=== PATIENT | male | born 1930 | race Caucasian/White ===

== ENCOUNTER 2017-11-30 10:44 | Inpatient (IN) ==
--- NOTE | 2017-11-30 12:01 | ED ---
HPI General Chief complaint: Extremity Problem,Nontraumatic Stated complaint: Feet Complaint Time Seen by Provider: 11/30/17 11:47 Source: patient and family Mode of arrival: ambulatory Limitations: no limitations History of Present Illness HPI narrative: Patient is an 87-year-old male presenting to the emergency department for evaluation of shortness of breath, bilateral lower extremity edema. Patient was sent in by his primary care provider Dr. Hyatt. Family reports that he has increasing activity intolerance for the last 3 weeks. His daughter states that he has been sedentary for the last several days due to shortness of breath. She also states that he has been complaining of chest and shoulder pain. Patient denies any nausea, vomiting, dizziness, headache, abdominal pain. He does report a decreased appetite and feeling bloated. Symptom onset was gradual, symptoms are moderate in nature. Onset (ago): week(s) (3) Location: chest Radiation: back Severity: mild Severity scale (1-10): 4 Quality: aching Pain Consistency: intermittent Associated symptoms: chest pain, loss of appetite and weakness Related Data Home Medications Medication Instructions Recorded Confirmed apixaban [Eliquis] 2.5 mg PO BID 11/30/17 11/30/17 aspirin 81 mg PO DAILY 11/30/17 11/30/17 atorvastatin 20 mg PO DAILY 11/30/17 11/30/17 donepezil 10 mg PO DAILY 11/30/17 11/30/17 duloxetine 60 mg PO DAILY 11/30/17 11/30/17 memantine 10 mg PO BID 11/30/17 11/30/17 [id number] acid-lutein [Centrum 1 tab PO DAILY 11/30/17 11/30/17 Silver] pregabalin [Lyrica] 50 mg PO TID PRN 11/30/17 11/30/17 sitagliptin [Januvia] 50 mg PO DAILY 11/30/17 11/30/17 Allergies Allergy/AdvReac Type Severity Reaction Status Date / Time No Known Allergies Allergy Unverified 11/30/17 11:51 Review of Systems Except as stated in HPI: all other systems reviewed are negative PMFSH History History Provided By: Family Member Medical History Medical History Atrial fibrillation (Chronic) Dementia (Chronic) Diabetes (Chronic) High cholesterol (Chronic) Pacemaker (Chronic) Pneumonia (Resolved) Surgical History Surgical History History of heart artery stent (Chronic) Social History Social History Smoking Status: Former smoker How Often Do You Have a Drink Containing Alcohol: 2 to 4 times a month Recent Travel in [facility] within the Last 8 Weeks: No Recent Out of Country Travel within the Last 8 Weeks: No Exam Narrative Exam Narrative: GENERAL: Well-developed, well-nourished, alert elderly male. Presenting in no acute distress. SKIN: Focused skin assessment warm/dry. HEAD: Atraumatic. Normocephalic. EYES: Pupils equal and round. No scleral icterus. No injection or drainage. ENT: No nasal bleeding or discharge. Mucous membranes pink and moist. NECK: Trachea midline. No JVD. CARDIOVASCULAR: Irregularly irregular. No murmur appreciated. 1+ pitting edema to bilateral lower extremities RESPIRATORY: No accessory muscle use. Clear to auscultation. Breath sounds equal bilaterally. GASTROINTESTINAL: Abdomen soft, non-tender, nondistended. Hepatic and splenic margins not palpable. MUSCULOSKELETAL: No obvious deformities. No clubbing. No cyanosis. No edema. NEUROLOGICAL: Awake and alert. No obvious cranial nerve deficits. Motor grossly within normal limits. Normal speech. PSYCHIATRIC: Appropriate mood and affect; insight and judgment normal. Course Initial Documented Vital Signs Temperature 98 F 11/30/17 10:50 Pulse Rate 84 11/30/17 10:50 Respiratory Rate 20 11/30/17 10:50 Blood Pressure 115/75 11/30/17 10:50 Pulse Oximetry 99 11/30/17 10:50 Last Documented Vital Signs Temperature 98 F 11/30/17 10:50 Pulse Rate 76 11/30/17 13:00 Respiratory Rate 18 11/30/17 13:00 Blood Pressure 120/79 11/30/17 13:00 Pulse Oximetry 99 11/30/17 13:00 Medical Decision Making LAITH Attestation LAITH supervised visit: Yes Attestation: I, Dr. Llanos, have reviewed the advance practice practitioner's documentation and am in agreement, met with the patient face to face, made the diagnosis, and the medical decision making was done by me. *My assessment and Findings: This patient has diffuse peripheral edema. He does not appear to be in any respiratory distress at this time. Workup is compatible with CHF and probable pneumonia as well. He is being admitted to the resident service. Please see Claribel Artis NP's note for a more detailed H&P, final diagnosis and disposition MDM Narrative Medical decision making narrative: Patient is a 87-year-old male presenting for evaluation of edema and shortness of breath. Patient has no history of COPD, hypertension or congestive heart failure. Labs and imaging ordered and pending. IV access established, patient placed on telemetry monitoring and continuous pulse oximetry. Patient is resting comfortably and family is at bedside. Labs reviewed, patient's BUN and creatinine 68/2.32, BNP is elevated at 1433, troponin 1.12. Initial chest x-ray with consolidation or mass in the right upper lung field. Culture showed interstitial disease versus edema. For this reason a CT scan of the chest was performed which showed bilateral effusions and parenchymal infiltrates with bronchogram pattern. Patient was started on azithromycin and Rocephin for pneumonia. He was given Lasix 40 mg IV 1 dose for the congestive heart failure. It is unclear if the renal failure is new as we have nothing to compare to. Discussed findings with my attending physician as well as with the residents who accepted admission for Dr. Riggs. Differential Diagnosis Differential Diagnosis: CHF versus cardiac arrhythmia versus metabolic abnormality versus pneumonia versus other Lab Data Lab results reviewed: Yes I reviewed the patient's lab results. Result diagrams: 11/30/17 12:10 11/30/17 12:10 Lab Results 11/30/17 11/30/17 11/30/17 Range/Units 12:10 12:10 12:10 WBC 7.9 (4.0-11.0) th/mm3 RBC 3.58 L (4.50-5.90) mil/mm3 Hgb 11.9 L (13.0-17.0) gm/dL Hct 35.3 L (39.0-51.0) % MCV 98.6 (80.0-100.0) fL MCH 33.3 (27.0-34.0) pg MCHC 33.7 (32.0-36.0) % RDW 13.9 (11.6-17.2) % Plt Count 148 L (150-450) th/mm3 MPV 9.7 (7.0-11.0) fL Neut % (Auto) 71.1 H (16.0-70.0) % Lymph % (Auto) 14.0 (9.0-44.0) % [place] % (Auto) 13.5 H (0.0-8.0) % Eos % (Auto) 1.2 (0.0-4.0) % Baso % (Auto) 0.2 (0.0-2.0) % Neut # (Auto) 5.6 (1.8-7.7) th/mm3 Lymph # (Auto) 1.1 (1.0-4.8) th/mm3 [place] # (Auto) 1.1 H (0.0-0.9) th/mm3 Eos # (Auto) 0.1 (0.0-0.4) th/mm3 Baso # (Auto) 0.0 (0.0-0.2) th/mm3 WBC Differential . Differential Comment Auto diff final PT 14.2 H (9.8-11.6) sec INR 1.4 Ratio Sodium 139 (136-145) meq/L Potassium 4.7 (3.5-5.1) meq/L Chloride 103 (98-107) meq/L Carbon Dioxide 27.0 (21.0-32.0) meq/L Anion Gap 9 (5-15) meq/L BUN 68 H (7-18) mg/dL Creatinine 2.32 H (0.60-1.30) mg/dL Estimated GFR 27 L (>89) mL/min Random Glucose 160 H (74-106) mg/dL Calcium 8.7 (8.5-10.1) mg/dL Magnesium 2.5 (1.5-2.5) mg/dL Total Bilirubin 0.5 (0.2-1.0) mg/dL AST 117 H (15-37) U/L ALT 266 H (12-78) U/L Alkaline Phosphatase 293 H (45-117) U/L Total Creatine Kinase 202 (39-308) U/L CK-MB (CK-2) 4.0 H (0.5-3.6) ng/mL Troponin I 1.21 H* (0.02-0.05) ng/mL B-Natriuretic Peptide (0-100) pg/mL Total Protein 6.7 (6.4-8.2) g/dL Albumin 2.7 L (3.4-5.0) g/dL 08/01/18 Range/Units 12:10 WBC (4.0-11.0) th/mm3 RBC (4.50-5.90) mil/mm3 Hgb (13.0-17.0) gm/dL Hct (39.0-51.0) % MCV (80.0-100.0) fL MCH (27.0-34.0) pg MCHC (32.0-36.0) % RDW (11.6-17.2) % Plt Count (150-450) th/mm3 MPV (7.0-11.0) fL Neut % (Auto) (16.0-70.0) % Lymph % (Auto) (9.0-44.0) % [place] % (Auto) (0.0-8.0) % Eos % (Auto) (0.0-4.0) % Baso % (Auto) (0.0-2.0) % Neut # (Auto) (1.8-7.7) th/mm3 Lymph # (Auto) (1.0-4.8) th/mm3 [place] # (Auto) (0.0-0.9) th/mm3 Eos # (Auto) (0.0-0.4) th/mm3 Baso # (Auto) (0.0-0.2) th/mm3 WBC Differential Differential Comment PT (9.8-11.6) sec INR Ratio Sodium (136-145) meq/L Potassium (3.5-5.1) meq/L Chloride (98-107) meq/L Carbon Dioxide (21.0-32.0) meq/L Anion Gap (5-15) meq/L BUN (7-18) mg/dL Creatinine (0.60-1.30) mg/dL Estimated GFR (>89) mL/min Random Glucose (74-106) mg/dL Calcium (8.5-10.1) mg/dL Magnesium (1.5-2.5) mg/dL Total Bilirubin (0.2-1.0) mg/dL AST (15-37) U/L ALT (12-78) U/L Alkaline Phosphatase (45-117) U/L Total Creatine Kinase (39-308) U/L CK-MB (CK-2) (0.5-3.6) ng/mL Troponin I (0.02-0.05) ng/mL B-Natriuretic Peptide 1433 H (0-100) pg/mL Total Protein (6.4-8.2) g/dL Albumin (3.4-5.0) g/dL Imaging Data Radiologist's impression: Chest X-Ray 11/30/17 11:55 CONCLUSION: Consolidation or mass in the right upper lung. Cardiomegaly. Indistinctness of the pulmonary vasculature which could suggest some interstitial disease/edema Chest CT 11/30/17 12:53 CONCLUSION: 1. Bilateral parenchymal infiltrates and effusions, right greater than left. 2. Mediastinal adenopathy. Radiology reports reviewed ECG Data EKG Prior to Arrival: No Attestation: I personally reviewed and interpreted this ECG as follows: (His EKG shows a paced rhythm. No further evaluation of EKG is possible. His rate is 73. Does not meet [place] criteria.) Discharge Plan Discharge Disposition Patient Disposition: 30 Still Patient Discharge Condition Condition: Stable Discharge Details Diagnosis: CHF (congestive heart failure), Pneumonia, Acute renal failure (ARF), Elevated troponin Physicians Team ED Provider: Paige Llanos ED Midlevel Provider: Claribel Smith Primary Care Provider: Micah Hyatt Attending Provider: Yovani Rivera ED Status: Admitted Patient
[2017-11-30 12:39] LABS: Baso % (Auto) 0.2 % (0.0-2.0); Eos # (Auto) 0.1 th/mm3 (0.0-0.4); Eos % (Auto) 1.2 % (0.0-4.0); Hematocrit 35.3 % (39.0-51.0); Hemoglobin 11.9 gm/dL (13.0-17.0); Lymph # (Auto) 1.1 th/mm3 (1.0-4.8); Mean Corpuscular HGB Conc 33.7 % (32.0-36.0); Mean Corpuscular Hemoglobin 33.3 pg (27.0-34.0); Mean Corpuscular Volume 98.6 fL (80.0-100.0); Mean Platelet Volume 9.7 fL (7.0-11.0); Mono # (Auto) 1.1 th/mm3 (0.0-0.9); Mono % (Auto) 13.5 % (0.0-8.0); Neut # (Auto) 5.6 th/mm3 (1.8-7.7); Neut % (Auto) 71.1 % (16.0-70.0); Platelet Count 148 th/mm3 (150-450); Red Blood Count 3.58 mil/mm3 (4.50-5.90); Red Cell Distribution Width 13.9 % (11.6-17.2); White Blood Count 7.9 th/mm3 (4.0-11.0)
[2017-11-30 12:43] LABS: Alanine Aminotransferase 266 U/L (12-78); Albumin 2.7 g/dL (3.4-5.0); Anion Gap 9 meq/L (5-15); Aspartate Aminotransferase 117 U/L (15-37); Blood Urea Nitrogen 68 mg/dL (7-18); Calcium 8.7 mg/dL (8.5-10.1); Chloride 103 meq/L (98-107); Glomerular Filtration Rate 27 mL/min (>89); Glucose,Random 160 mg/dL (74-106); Magnesium 2.5 mg/dL (1.5-2.5); Potassium 4.7 meq/L (3.5-5.1); Sodium 139 meq/L (136-145)
[2017-11-30 12:44] LABS: INR 1.4 Ratio; Prothrombin Time 14.2 sec (9.8-11.6)
[2017-11-30 12:47] LABS: Alkaline Phosphatase 293 U/L (45-117); Creatine Kinase 202 U/L (39-308); Total Protein 6.7 g/dL (6.4-8.2)
--- NOTE | 2017-11-30 12:52 | XR ---
EXAM DATE: 11/30/2017 12:34 PM EDT AGE/SEX: 87 years / Male INDICATIONS: Shortness of breath and chest pain. CLINICAL DATA: This is the patient's initial encounter. Patient reports that signs and symptoms have been present for 1 day and indicates a pain score of 8/10. MEDICAL/SURGICAL HISTORY: Diabetes. Pacemaker. COMPARISON: No prior exams available for comparison. FINDINGS: There is a pacing device in place from the left subclavian approach. The heart size is enlarged. Ther e is a patchy area of density seen in the right upper lung. There is some mild indistinctness the pul monary vasculature. The costophrenic angles are grossly clear. CONCLUSION: Consolidation or mass in the right upper lung. Cardiomegaly. Indistinctness of the pulmonary vasculature which could suggest some interstitial disease/edema Electronically signed by: Manish Choi MD 11/30/2017 12:50 PM EDT
[2017-11-30 13:10] LABS: Troponin I 1.21 ng/mL (0.02-0.05)
--- NOTE | 2017-11-30 14:07 | CT ---
EXAM DATE: 11/30/2017 1:56 PM EDT AGE/SEX: 87 years / Male INDICATIONS: Shortness of breath. CLINICAL DATA: This is the patient's initial encounter. Patient reports that signs and symptoms have been present for 1 day and indicates a pain score of 0/10. MEDICAL/SURGICAL HISTORY: Diabetes. Dementia. Pacemaker. Carotid stent. RADIATION DOSE: 12.91 CTDI (mGy) COMPARISON: [facility] – [place], [place], CHEST 1V SINGLE AP, 11/30/2017. . TECHNIQUE: Multiple contiguous axial images were obtained through the chest without contrast. Image s were obtained in suspended respiration using multiple row detector helical technique. Using automa audrey exposure control and adjustment of the mA and/or kV according to patient size, radiation dose was kept as low as reasonably achievable to obtain optimal diagnostic quality images. DICOM format imag e data is available electronically for review and comparison. FINDINGS: There are coarse parenchymal infiltrate bilaterally most pronounced in the right upper lobe with air bronchogram formation seen. There is a large right-sided effusion and a moderate left effusion. There are mildly prominent mediastinal lymph nodes identified including AP window 1.2 cm node, 1 cm subcar inal node, and 9 mm right paratracheal node. There is prominent coronary artery calcification seen. A dual-lead pacer device from a left subclavian transvenous approach is noted. The osseous structures are intact. CONCLUSION: 1. Bilateral parenchymal infiltrates and effusions, right greater than left. 2. Mediastinal adenopathy. Electronically signed by: Adeel Torre MD 11/30/2017 2:05 PM EDT
[2017-11-30] MEDS ORDERED: Azithromycin Inj 500 MG in Sodium Chlor 0.9% Inj 250 ML IV.SIG ONE (14:20)
--- NOTE | 2017-11-30 14:55 | P.HPFP ---
History of Present Illness Primary Care Physician: Micah Hyatt MD <Yovani Rivera 12/01/17 14:01> Micah Hyatt MD <Kasey Baxter 11/30/17 14:55> History of Present Illness: Patient's and daughter at bedside and contribute to history. Mr. Moran is an 87-year-old male with a history of dementia who presents with swelling of legs and dyspnea. He reports that for the past 2 weeks he has had increasing difficulty of breathing with exertion. He is now unable to walk across a room without feeling short of breath. He has had a cough for the past 5 days nonproductive. Past 5 days he has also noticed some increased swelling of his legs bilaterally. He denies orthopnea. He reports neck pain but denies jorge luis chest, jaw or arm pain. Daughter and do not report any change in mentation. He denies fevers, chills, abdominal pain, diarrhea, nausea, vomiting. PMH: DM HLD Afib Sx: Pacemaker- 2004 Stent 2005, 1997 Meds: ASA Januvia Eliquis Atorvastatin Donepezil Duloxetine Memantine Lyrica FMH: Father- dementia Mom- DM Social: Chews cigars, former smoker quit 10 years ago Social No recreational drugs <Kasey Baxter 11/30/17 23:26> - Diagnosis (1) CHF (congestive heart failure) (2) Elevated troponin (3) Acute renal failure (ARF) (4) Pneumonia (5) Elevated liver enzymes (6) Abnormal chest CT (7) Dementia (8) Diabetes (9) Afib (10) Hyperlipidemia (11) Nutrition, metabolism, and development symptoms <Yovani Rivera 12/01/17 14:01> (1) CHF (congestive heart failure) (2) Elevated troponin (3) Acute renal failure (ARF) (4) Elevated liver enzymes (5) Abnormal chest CT (6) Dementia (7) Diabetes (8) Afib (9) Hyperlipidemia (10) Nutrition, metabolism, and development symptoms <Kasey Baxter 12/01/17 09:39> Inpatient Certification: I certify that the inpatient services were ordered in accordance with Medicare regulations governing the order. This includes certification that hospital inpatient services are reasonable and necessary and in the case of services not specified as inpatient-only under 42 CFR 419.22(n), that they are appropriately provided as inpatient services in accordance to with the 2-midnight benchmark under 43 CFR 412.3(e) <Yovani Rivera 12/01/17 14:01> Review of Systems Daughter and contributed to review of systems Constitutional: [Denies] chills, [Denies] fever(s), [Denies] headache(s), [ Denies]weakness, reports fatigue Eyes: [Denies] blurry vision, [Denies] change in vision, [Denies] double vision Ears, Nose, Mouth, and Throat:[Denies] ear pain,[Denies] nasal congestion, [ Denies] sore throat Cardiovascular: [Denies] lightheadedness, [Denies] chest pain, [Denies] palpitations, [Denies] fainting. [Denies] rapid heart rate Respiratory: [Denies] cough, reports shortness of breath Gastrointestinal: [Denies] abdominal pain,[Denies] cramping, [Denies] black, tarry stools, [Denies] bright, red blood in stools, [Denies] nausea, [Denies] vomiting, [Denies] changes in bowel habits Genitourinary: [Denies] blood in urine, [Denies] painful urination, [Denies] urinary urgency, [Denies] urinary frequency Musculoskeletal: Reports neck pain [Denies] body aches, [Denies] joint pains, [ Denies] muscle weakness Neurologic: [Denies] numbness, [Denies] tingling, [Denies] dizziness <Kasey Baxter 11/30/17 22:18> PMFSH - History History Provided By: Family Member <Kasey Baxter 11/30/17 14:55> - Medical History Medical History: Medical History (Last Updated 11/30/17 @ 12:00 by YVES Casey) Atrial fibrillation Dementia Diabetes High cholesterol Pacemaker Pneumonia <Yovani Rivera - 12/01/17 14:01> Medical History (Last Updated 11/30/17 @ 12:00 by YVES Casey) Atrial fibrillation Dementia Diabetes High cholesterol Pacemaker Pneumonia <Kasey Baxter 11/30/17 14:55> - Surgical History Surgical History: Surgical History (Last Updated 11/30/17 @ 12:00 by YVES Casey) History of heart artery stent <Yovani Rivera 12/01/17 14:01> Surgical History (Last Updated 11/30/17 @ 12:00 by YVES Casey) History of heart artery stent <Kasey Baxter 11/30/17 14:55> - Tobacco History Smoking Status: Former smoker <Kasey Baxter 11/30/17 14:55> - Alcohol History How Often Do You Have a Drink Containing Alcohol: 2 to 4 times a month <Kasey Baxter 11/30/17 14:55> - Substance Use History Substance History: No History of Abuse <Kasey Baxter 11/30/17 22:18> - Travel History Recent Travel in the [facility] Within the Last 8 Weeks: No <Kasey Baxter 14:55> Recent Travel Out of the Country Within the Last 8 Weeks: No <Kasey Baxter 11/30/17 14:55> - Immunization History Tetanus Immunization: Unsure <Kasey Baxter 11/30/17 14:55> Hx Influenza Vaccine This Season: Yes <Kasey Baxter 11/30/17 14:55> Medications and Allergies Allergies Allergy/AdvReac Type Severity Reaction Status Date / Time No Known Allergies Allergy Verified 11/30/17 15:30 <Yovani Rivera 12/01/17 14:01> Home Medications Medication Instructions Recorded Confirmed Type apixaban [Eliquis] 2.5 mg PO BID 11/30/17 11/30/17 History aspirin 81 mg PO DAILY 11/30/17 11/30/17 History atorvastatin 20 mg PO DAILY 11/30/17 11/30/17 History donepezil 10 mg PO DAILY 11/30/17 11/30/17 History duloxetine 60 mg PO DAILY 11/30/17 11/30/17 History memantine 10 mg PO BID 11/30/17 11/30/17 History [id number] acid-lutein [Centrum 1 tab PO DAILY 11/30/17 11/30/17 History Silver] pregabalin [Lyrica] 50 mg PO TID PRN 11/30/17 11/30/17 History sitagliptin [Januvia] 50 mg PO DAILY 11/30/17 11/30/17 History <Miguel,Yovani - 12/01/17 14:01> Active Medications: Active Medications Al Hydroxide/Mg Hydroxide (Milk Of Magnesia Liq) 30 ml PO Q12H PRN PRN Reason: Mild Constipation Apixaban (Eliquis) 2.5 mg PO BID [facility] Last Admin: 12/01/17 09:47 Dose: 2.5 mg Aspirin (Aspirin Chew) 81 mg PO DAILY [facility] Last Admin: 12/01/17 09:46 Dose: 81 mg Atorvastatin Calcium (Lipitor) 80 mg PO HS [facility] Last Admin: 11/30/17 22:08 Dose: 80 mg Bisacodyl (Dulcolax Supp) 10 mg RECTAL DAILY PRN PRN Reason: SEVERE CONSITIPATION Dextrose (D50w Vial) 50 ml IV.PUSH UNSCH PRN PRN Reason: PER HYPOGLYCEMIA PROTOCOL Donepezil HCl (Aricept) 10 mg PO DAILY [facility] Last Admin: 12/01/17 09:45 Dose: 10 mg Duloxetine HCl (Cymbalta) 60 mg PO DAILY [facility] Last Admin: 12/01/17 09:46 Dose: 60 mg Furosemide (Lasix Inj) 40 mg IV.PUSH DAILY [facility] Last Admin: 12/01/17 09:47 Dose: 40 mg Glucagon (Glucagon Inj) 1 mg OTHER PRN PRN PRN Reason: for Hypoglycemia Protocol Insulin Aspart (Novolog Insulin Correctional Sugar Inj) 0 unit SQ [facility]; Protocol Last Admin: 12/01/17 10:17 Dose: Not Given Lactulose (Lactulose Liq) 30 ml PO DAILY PRN PRN Reason: SEVERE CONSITIPATION Memantine (Namenda) 10 mg PO BID [facility] Last Admin: 12/01/17 09:46 Dose: 10 mg Metoprolol Tartrate (Lopressor) 12.5 mg PO BID [facility] Last Admin: 12/01/17 09:46 Dose: 12.5 mg Nitroglycerin (Nitro-Bid 2% Oint) 0.5 inch TOPICAL Q8HR [facility] Last Admin: 12/01/17 06:05 Dose: Not Given Pregabalin (Lyrica) 50 mg PO TID PRN PRN Reason: PAIN SCALE 1 TO 10 Senna/Docusate Sodium (Minerva-Colace) 1 tab PO BID [facility] Last Admin: 12/01/17 09:45 Dose: 1 tab Sennosides (Senokot) 17.2 mg PO Q12H PRN PRN Reason: Moderate Constipation <Yovani Rivera - 12/01/17 14:01> Active Medications Azithromycin 500 mg/ Sodium (Chloride) 250 mls @ 250 mls/hr IV.SIG ONCE ONE Stop: 11/30/17 15:19 Ceftriaxone Sodium 2,000 mg/ (Sodium Chloride) 100 mls @ 200 mls/hr IV.SIG ONCE ONE Stop: 11/30/17 14:49 <Kasey Baxter - 11/30/17 14:55> Exam Vital signs: Vital Signs 11/30/17 15:05 11/30/17 17:00 11/30/17 18:24 Temperature Pulse Rate 78 84 75 Respiratory Rate 18 14 18 Blood Pressure 130/78 106/62 106/62 Pulse Oximetry 95 100 11/30/17 19:54 11/30/17 23:21 12/01/17 03:23 Temperature 98.2 F 97.9 F 97.8 F Pulse Rate 80 63 107 H Respiratory Rate 16 16 16 Blood Pressure 117/67 98/69 L Pulse Oximetry 97 95 90 L 12/01/17 08:00 12/01/17 12:00 Temperature 98.7 F 98.7 F Pulse Rate 60 62 Respiratory Rate 18 18 Blood Pressure 113/67 Pulse Oximetry 99 94 L Intake & Output 11/30/17 12/01/17 12/01/17 18:59 06:59 18:59 Intake Total 350 / 350 Output Total 250 / 250 Balance 100 / 100 Weight 90.718 kg 80.11 kg Intake: IV 350 / 350 Azithromycin Inj 500 MG In NS 250 / 250 Inj 250 ML @ 250 mls/hr IV.SIG ONCE ONE Rx#:[id number] Rocephin Inj 2,000 MG In NS Inj 100 / 100 100 ML @ 200 mls/hr IV.SIG ONCE ONE Rx#:[id number] Output: Urine 250 / 250 Other: # Incontinent Voids 2 Date of Last Bowel Movement 11/30/17 <Yovani Rivera - 12/01/17 14:01> Vital Signs 11/30/17 10:50 11/30/17 11:55 11/30/17 13:00 Temperature 98 F Pulse Rate 84 74 76 Respiratory Rate 20 18 Blood Pressure 115/75 120/79 Pulse Oximetry 99 100 99 Intake & Output 11/29/17 11/30/17 11/30/17 18:59 06:59 18:59 Weight 90.718 kg <Kasey Baxter Christi - 11/30/17 14:55> Narrative: GENERAL: Thin male lying in bed comfortable HEAD: Normocephalic. EYES: No scleral icterus. NECK: No JVD or lymphadenopathy. CARDIOVASCULAR: Irregular rate without murmurs, gallops, or rubs. RESPIRATORY: Occasional crackles heard bilateral bases. breath sounds equal bilaterally. No accessory muscle use. GASTROINTESTINAL: Abdomen soft, non-tender, nondistended. MUSCULOSKELETAL: No cyanosis. 1+ pitting edema bilaterally lower extremities extending to mid wang BACK: Kyphotic, no CVA tenderness. Neurological: Patient oriented only to self <Jt Baxteryovani Barraza - 11/30/17 23:26> Results - Labs Result diagrams: 12/01/17 05:55 12/01/17 05:55 <Yovani Rivera 12/01/17 14:01> Abnormal lab results 11/30/17 11/30/17 12/01/17 Range/Units 18:30 20:37 05:55 RBC (4.50-5.90) mil/mm3 Hgb (13.0-17.0) gm/dL Hct (39.0-51.0) % Plt Count (150-450) th/mm3 Neut % (Auto) (16.0-70.0) % [place] % (Auto) (0.0-8.0) % [place] # (Auto) (0.0-0.9) th/mm3 Chloride (98-107) meq/L BUN (7-18) mg/dL Creatinine (0.60-1.30) mg/dL Estimated GFR (>89) mL/min POC Glucose 296 H (68-110) mg/dl Random Glucose (74-106) mg/dL AST (15-37) U/L ALT (12-78) U/L Alkaline Phosphatase (45-117) U/L Troponin I 1.38 H* 1.56 H* (0.02-0.05) ng/mL B-Natriuretic Peptide (0-100) pg/mL Total Protein (6.4-8.2) g/dL Albumin (3.4-5.0) g/dL Triglycerides 33 L (42-150) mg/dL Cholesterol 59 L (120-200) mg/dL HDL Cholesterol 37.8 L (40.0-60.0) mg/dL 12/01/17 12/01/17 12/01/17 Range/Units 05:55 05:55 05:55 RBC 3.66 L (4.50-5.90) mil/mm3 Hgb 12.0 L (13.0-17.0) gm/dL Hct 36.0 L (39.0-51.0) % Plt Count 147 L (150-450) th/mm3 Neut % (Auto) 76.1 H (16.0-70.0) % [place] % (Auto) 11.7 H (0.0-8.0) % [place] # (Auto) 1.1 H (0.0-0.9) th/mm3 Chloride 108 H (98-107) meq/L BUN 74 H (7-18) mg/dL Creatinine 2.49 H (0.60-1.30) mg/dL Estimated GFR 25 L (>89) mL/min POC Glucose (68-110) mg/dl Random Glucose 71 L (74-106) mg/dL AST 192 H (15-37) U/L ALT 286 H (12-78) U/L Alkaline Phosphatase 359 H (45-117) U/L Troponin I (0.02-0.05) ng/mL B-Natriuretic Peptide 2009 H (0-100) pg/mL Total Protein 6.3 L (6.4-8.2) g/dL Albumin 2.7 L (3.4-5.0) g/dL Triglycerides (42-150) mg/dL Cholesterol (120-200) mg/dL HDL Cholesterol (40.0-60.0) mg/dL 18 12/01/17 Range/Units 11:23 13:28 RBC (4.50-5.90) mil/mm3 Hgb (13.0-17.0) gm/dL Hct (39.0-51.0) % Plt Count (150-450) th/mm3 Neut % (Auto) (16.0-70.0) % [place] % (Auto) (0.0-8.0) % [place] # (Auto) (0.0-0.9) th/mm3 Chloride (98-107) meq/L BUN (7-18) mg/dL Creatinine (0.60-1.30) mg/dL Estimated GFR (>89) mL/min POC Glucose 111 H (68-110) mg/dl Random Glucose (74-106) mg/dL AST (15-37) U/L ALT (12-78) U/L Alkaline Phosphatase (45-117) U/L Troponin I 1.49 H* (0.02-0.05) ng/mL B-Natriuretic Peptide (0-100) pg/mL Total Protein (6.4-8.2) g/dL Albumin (3.4-5.0) g/dL Triglycerides (42-150) mg/dL Cholesterol (120-200) mg/dL HDL Cholesterol (40.0-60.0) mg/dL Short CBC 12/01/17 Range/Units 05:55 WBC 9.1 (4.0-11.0) th/mm3 Hgb 12.0 L (13.0-17.0) gm/dL Hct 36.0 L (39.0-51.0) % Plt Count 147 L (150-450) th/mm3 BMP 12/01/17 05:55 Sodium 143 Potassium 5.0 Chloride 108 H Carbon Dioxide 28.3 BUN 74 H Creatinine 2.49 H Calcium 8.7 Cardiac Enzymes 11/30/17 12/01/17 12/01/17 Range/Units 18:30 05:55 11:23 Troponin I 1.38 H* 1.56 H* 1.49 H* (0.02-0.05) ng/mL Liver Function 12/01/17 Range/Units 05:55 Total Bilirubin 0.6 (0.2-1.0) mg/dL AST 192 H (15-37) U/L ALT 286 H (12-78) U/L Alkaline Phosphatase 359 H (45-117) U/L Albumin 2.7 L (3.4-5.0) g/dL <Yovani Rivera - 12/01/17 14:01> Abnormal lab results 11/30/17 11/30/17 11/30/17 Range/Units 12:10 12:10 12:10 RBC 3.58 L (4.50-5.90) mil/mm3 Hgb 11.9 L (13.0-17.0) gm/dL Hct 35.3 L (39.0-51.0) % Plt Count 148 L (150-450) th/mm3 Neut % (Auto) 71.1 H (16.0-70.0) % [place] % (Auto) 13.5 H (0.0-8.0) % [place] # (Auto) 1.1 H (0.0-0.9) th/mm3 PT 14.2 H (9.8-11.6) sec BUN 68 H (7-18) mg/dL Creatinine 2.32 H (0.60-1.30) mg/dL Estimated GFR 27 L (>89) mL/min Random Glucose 160 H (74-106) mg/dL AST 117 H (15-37) U/L ALT 266 H (12-78) U/L Alkaline Phosphatase 293 H (45-117) U/L CK-MB (CK-2) 4.0 H (0.5-3.6) ng/mL Troponin I 1.21 H* (0.02-0.05) ng/mL B-Natriuretic Peptide (0-100) pg/mL Albumin 2.7 L (3.4-5.0) g/dL 11/30/17 Range/Units 12:10 RBC (4.50-5.90) mil/mm3 Hgb (13.0-17.0) gm/dL Hct (39.0-51.0) % Plt Count (150-450) th/mm3 Neut % (Auto) (16.0-70.0) % [place] % (Auto) (0.0-8.0) % [place] # (Auto) (0.0-0.9) th/mm3 PT (9.8-11.6) sec BUN (7-18) mg/dL Creatinine (0.60-1.30) mg/dL Estimated GFR (>89) mL/min Random Glucose (74-106) mg/dL AST (15-37) U/L ALT (12-78) U/L Alkaline Phosphatase (45-117) U/L CK-MB (CK-2) (0.5-3.6) ng/mL Troponin I (0.02-0.05) ng/mL B-Natriuretic Peptide 1433 H (0-100) pg/mL Albumin (3.4-5.0) g/dL Short CBC 11/30/17 Range/Units 12:10 WBC 7.9 (4.0-11.0) th/mm3 Hgb 11.9 L (13.0-17.0) gm/dL Hct 35.3 L (39.0-51.0) % Plt Count 148 L (150-450) th/mm3 BMP 11/30/17 12:10 Sodium 139 Potassium 4.7 Chloride 103 Carbon Dioxide 27.0 BUN 68 H Creatinine 2.32 H Calcium 8.7 Cardiac Enzymes 11/30/17 Range/Units 12:10 Total Creatine Kinase 202 (39-308) U/L CK-MB (CK-2) 4.0 H (0.5-3.6) ng/mL Troponin I 1.21 H* (0.02-0.05) ng/mL Liver Function 11/30/17 Range/Units 12:10 Total Bilirubin 0.5 (0.2-1.0) mg/dL AST 117 H (15-37) U/L ALT 266 H (12-78) U/L Alkaline Phosphatase 293 H (45-117) U/L Albumin 2.7 L (3.4-5.0) g/dL <Kasey Baxter - 11/30/17 14:55> - Imaging Impressions Chest CT 11/30/17 12:53 CONCLUSION: 1. Bilateral parenchymal infiltrates and effusions, right greater than left. 2. Mediastinal adenopathy. Abdomen/Bladder Ultrasound 12/01/17 00:00 CONCLUSION: 1. Mild thinning of the renal cortex and slight increase in echogenicity this can be seen with underlying medical renal disease. 2. Small simple cyst identified in the left kidney. <Yovani Rivera - 12/01/17 14:01> Impressions Chest X-Ray 11/30/17 11:55 CONCLUSION: Consolidation or mass in the right upper lung. Cardiomegaly. Indistinctness of the pulmonary vasculature which could suggest some interstitial disease/edema Chest CT 11/30/17 12:53 CONCLUSION: 1. Bilateral parenchymal infiltrates and effusions, right greater than left. 2. Mediastinal adenopathy. <Kasey Baxter 11/30/17 14:55> Caprini VTE Risk Assessment Caprini VTE Risk Assessment: Moderate/High Risk (score >= 2) <Kasey Baxter 11/30/17 22:44> Caprini Risk Assessment Model: Point Value = 1 Point Value = 2 Point Value = 3 Point Value = 5 Age 41-60 Minor surgery BMI > 25 kg/m2 Swollen legs Varicose veins or History of unexplained or recurrent spontaneous Oral contraceptives or hormone replacement Sepsis (< 1 month) Serious lung disease, including pneumonia (< 1 month) Abnormal pulmonary function Acute myocardial infarction Congestive heart failure (< 1 month) History of inflammatory bowel disease Medical patient at bed rest Age 61-74 Arthroscopic surgery Major open surgery (> 45 min) Laparoscopic surgery (> 45 min) Malignancy Confined to bed (> 72 hours) Immobilizing plaster cast Central venous access Age >= 75 History of VTE Family history of VTE Factor V Leiden Prothrombin [id number] Lupus anticoagulant Anticardiolipin antibodies Elevated serum homocysteine Heparin-induced thrombocytopenia Other congenital or acquired thrombophilia Stroke (< 1 month) Elective arthroplasty Hip, pelvis, or leg fracture Acute spinal cord injury (< 1 month) <Yovani Rivera 12/01/17 14:01> Point Value = 1 Point Value = 2 Point Value = 3 Point Value = 5 Age 41-60 Minor surgery BMI > 25 kg/m2 Swollen legs Varicose veins or History of unexplained or recurrent spontaneous Oral contraceptives or hormone replacement Sepsis (< 1 month) Serious lung disease, including pneumonia (< 1 month) Abnormal pulmonary function Acute myocardial infarction Congestive heart failure (< 1 month) History of inflammatory bowel disease Medical patient at bed rest Age 61-74 Arthroscopic surgery Major open surgery (> 45 min) Laparoscopic surgery (> 45 min) Malignancy Confined to bed (> 72 hours) Immobilizing plaster cast Central venous access Age >= 75 History of VTE Family history of VTE Factor V Leiden Prothrombin [id number] Lupus anticoagulant Anticardiolipin antibodies Elevated serum homocysteine Heparin-induced thrombocytopenia Other congenital or acquired thrombophilia Stroke (< 1 month) Elective arthroplasty Hip, pelvis, or leg fracture Acute spinal cord injury (< 1 month) <Kasey Baxter 11/30/17 14:55> Prophylaxis Regimen: Total Risk Factor Score Risk Level Prophylaxis Regimen 0-1 Low Early ambulation 2 Moderate Order ONE of the following: *Sequential Compression Device (SCD) *Heparin 5000 units SQ BID 3-4 Higher Order ONE of the following medications: *Heparin 5000 units SQ TID *Enoxaparin/Lovenox 40 mg SQ daily (WT < 150 kg, CrCl > 30 mL/min) *Enoxaparin/Lovenox 30 mg SQ daily (WT < 150 kg, CrCl > 10-29 mL/min) *Enoxaparin/Lovenox 30 mg SQ BID (WT < 150 kg, CrCl > 30 mL/min) AND/OR *Sequential Compression Device (SCD) 5 or more Highest Order ONE of the following medications: *Heparin 5000 units SQ TID (Preferred with Epidurals) *Enoxaparin/Lovenox 40 mg SQ daily (WT < 150 kg, CrCl > 30 mL/min) *Enoxaparin/Lovenox 30 mg SQ daily (WT < 150 kg, CrCl > 10-29 mL/min) *Enoxaparin/Lovenox 30 mg SQ BID (WT < 150 kg, CrCl > 30 mL/min) AND *Sequential Compression Device (SCD) <Yovani Rivera - 12/01/17 14:01> Total Risk Factor Score Risk Level Prophylaxis Regimen 0-1 Low Early ambulation 2 Moderate Order ONE of the following: *Sequential Compression Device (SCD) *Heparin 5000 units SQ BID 3-4 Higher Order ONE of the following medications: *Heparin 5000 units SQ TID *Enoxaparin/Lovenox 40 mg SQ daily (WT < 150 kg, CrCl > 30 mL/min) *Enoxaparin/Lovenox 30 mg SQ daily (WT < 150 kg, CrCl > 10-29 mL/min) *Enoxaparin/Lovenox 30 mg SQ BID (WT < 150 kg, CrCl > 30 mL/min) AND/OR *Sequential Compression Device (SCD) 5 or more Highest Order ONE of the following medications: *Heparin 5000 units SQ TID (Preferred with Epidurals) *Enoxaparin/Lovenox 40 mg SQ daily (WT < 150 kg, CrCl > 30 mL/min) *Enoxaparin/Lovenox 30 mg SQ daily (WT < 150 kg, CrCl > 10-29 mL/min) *Enoxaparin/Lovenox 30 mg SQ BID (WT < 150 kg, CrCl > 30 mL/min) AND *Sequential Compression Device (SCD) <Kasey Baxter Christi - 11/30/17 14:55> Assessment and Plan - Assessment (1) CHF (congestive heart failure) Code(s): I50.9 - Heart failure, unspecified Status: Acute (2) Elevated troponin Code(s): R74.8 - Abnormal levels of other serum enzymes Status: Acute (3) Acute renal failure (ARF) Code(s): N17.9 - Acute kidney failure, unspecified Status: Acute (4) Pneumonia Code(s): J18.9 - Pneumonia, unspecified organism Status: Acute (5) Elevated liver enzymes Code(s): R74.8 - Abnormal levels of other serum enzymes Status: Acute (6) Abnormal chest CT Code(s): R93.8 - Abnormal findings on diagnostic imaging of other specified body structures Status: Acute (7) Dementia Code(s): F03.90 - Unspecified dementia without behavioral disturbance Status: Acute (8) Diabetes Code(s): E11.9 - Type 2 diabetes mellitus without complications Status: Acute (9) Afib Code(s): I48.91 - Unspecified atrial fibrillation Status: Acute (10) Hyperlipidemia Code(s): E78.5 - Hyperlipidemia, unspecified Status: Acute (11) Nutrition, metabolism, and development symptoms Code(s): R63.8 - Other symptoms and signs concerning food and fluid intake Status: Acute <Yovani Rivera - 12/01/17 14:01> (1) CHF (congestive heart failure) Code(s): I50.9 - Heart failure, unspecified Status: Acute Plan: -Occasional crackles on lung exam at bilateral bases -Lasix 40 mg daily -2D echocardiogram to evaluate ejection fraction -BNP 1433 on admission -Cardiology following. Appreciate recommendations (2) Elevated troponin Code(s): R74.8 - Abnormal levels of other serum enzymes Status: Acute Plan: -Serial troponins show 1.2 and 1.38, continue to trend -Continue to trend EKGs -Cardiology consulted. At this time he did they do not believe that catheterization is a good option for this patient. Recommend continuing aspirin , Eliquis and adding Nitropaste as well as metoprolol 12.5 mg twice daily. Appreciate recommendations -Patient is ventricularly paced on EKGs. No ST elevation can be identified from EKG. -TUTU confounding factor. (3) Acute renal failure (ARF) Code(s): N17.9 - Acute kidney failure, unspecified Status: Acute Plan: PreRenal pattern of BUN/creatinine -Lasix 40mg daily to mobilize fluid -Nephrology consulted per cardiology -Creatinine 2.32 on admission, no previous baseline known -Follow-up BMP in a.m. (4) Elevated liver enzymes Code(s): R74.8 - Abnormal levels of other serum enzymes Status: Acute Plan: -Hepatitis panel ordered for the a.m. -Fasting lipids for the morning -No known liver disease -Follow-up CMP in a.m. (5) Abnormal chest CT Code(s): R93.8 - Abnormal findings on diagnostic imaging of other specified body structures Status: Acute Plan: -Bilateral parenchymal infiltrates and effusions with mediastinal adenopathy -Inflammatory versus infectious etiology to infiltrates -Lactic acid, blood cultures, urine antigens ordered -Levaquin 500 mg IV daily -Patient's white count within normal limits and he remains afebrile. -Continue to monitor vital signs and white count (6) Dementia Code(s): F03.90 - Unspecified dementia without behavioral disturbance Status: Acute Plan: Continue home meds (7) Diabetes Code(s): E11.9 - Type 2 diabetes mellitus without complications Status: Acute Plan: -Diabetic diet -Patient on low-dose sliding scale insulin (8) Afib Code(s): I48.91 - Unspecified atrial fibrillation Status: Acute Plan: Continue Eliquis Continuous telemetry (9) Hyperlipidemia Code(s): E78.5 - Hyperlipidemia, unspecified Status: Acute Plan: Continue statin (10) Nutrition, metabolism, and development symptoms Code(s): R63.8 - Other symptoms and signs concerning food and fluid intake Status: Acute Plan: Diet: Diabetic diet Fluids: None at this time DVT prophylaxis: On Eliquis <Kasey Baxter - 12/01/17 09:39> - Assessment and Plan Discussed Condition With: Dorinda Rivera and Nick <Kasey Baxter - 12/01/17 09:43> - Attending Attestation The exam, history, and the medical decision-making described in the above note were completed with the assistance of the resident physician. I reviewed and agree with the findings presented. I attest that I had a [id number] encounter with the patient on the same day, and personally performed and documented my assessment and findings in the medical record. <Yovani Rivera - 12/01/17 14:01> <Yovani Rivera - Last Filed: 12/01/17 14:01> (1) CHF (congestive heart failure) Qualifiers: Heart failure type: unspecified Heart failure chronicity: unspecified Qualified Code(s): I50.9 - Heart failure, unspecified (3) Acute renal failure (ARF) Qualifiers: Acute renal failure type: unspecified Qualified Code(s): N17.9 - Acute kidney failure, unspecified (4) Pneumonia Qualifiers: Pneumonia type: due to unspecified organism Laterality: unspecified laterality Lung location: unspecified part of lung Qualified Code(s): J18.9 - Pneumonia, unspecified organism <Yovani Rivera - Last Filed: 12/01/17 14:01> (1) CHF (congestive heart failure) Qualifiers: Heart failure type: unspecified Heart failure chronicity: unspecified Qualified Code(s): I50.9 - Heart failure, unspecified (3) Acute renal failure (ARF) Qualifiers: Acute renal failure type: unspecified Qualified Code(s): N17.9 - Acute kidney failure, unspecified (4) Pneumonia Qualifiers: Pneumonia type: due to unspecified organism Laterality: unspecified laterality Lung location: unspecified part of lung Qualified Code(s): J18.9 - Pneumonia, unspecified organism
[2017-11-30] MEDS ORDERED: Bisacodyl 10 MG Supp RECTAL PRN (15:05)
[2017-11-30] MEDS ORDERED: Dextrose 50% in Water 50 ML Vial IV.PUSH PRN (15:43)
[2017-11-30] MEDS ORDERED: Pregabalin 25 MG Capsule PO PRN (16:00)
[2017-11-30] MEDS: Insulin NovoLOG Aspart Correctional Sugar Inj SQ SCH ×2 (16:34→22:09)
--- NOTE | 2017-11-30 17:34 | P.CONCA ---
<Meg Thao N - Last Filed: 11/30/17 16:52> History of Present Illness Service: Cardiology Consult date: 11/30/17 Requesting Physician: Kasey Baxter Reason for Consult: elevated troponin and BNP Primary Care Provider: Micah Hyatt MD Chief Complaint: Swelling of the lower extremities and SOB History of Present Illness: Patient is a 87-year-old male who presented to the emergency department for evaluation of shortness of breath, bilateral lower extremity edema for the last 2-3 weeks. Patient is a very poor historian, and daughter at bedside provided information. Patient's current siding stapler is Angel gutierrez in [place]. Patient's history is dementia, diabetes, hyperlipidemia , atrial fibrillation, [employer] dual-chamber pacemaker placement in 2004, stent placement 1997 and 2005, pacemaker battery replacement in 2010. stated that patient had a stress test and she believes that it is <5 years ago but is unsure. Patient currently takes aspirin 81 mg, Januvia 50 mg, Eliquis 2.5 mg, atorvastatin 20 mg. Patient's current troponin levels 1.21. Patient currently receiving antibiotics for treatment of pneumonia. Currently patient denies any chest pain, pressure, palpitations, dizziness or shortness of breath. Patient does complain of swelling in the lower extremities. Review of Systems General: Patient denies fevers, chills, and recent travel. HEENT: Patient denies headache, sore throat, difficulty swallowing. Cardiovascular: Patient denies chest pain, dizziness. Denies sensation of heart beating rapidly or irregularly. No syncope. Respiratory: Patient currently denies shortness of breath but family states he has had shortness of breath over the last 2 or 3 weeks. Denies inspirational chest discomfort. Denies coughing wheezing or hemoptysis. GI: Patient denies nausea, vomiting, diarrhea, abdominal pain, bloody stools. Musculoskeletal: Patient denies joint pain. Complains of edema in the lower extremities bilaterally. Denies calf pain. Neurovascular: Patient denies numbness, tingling, weakness in extremities. Denies headache. Endocrine: Denies polyuria and polydipsia. Hematologic: Denies easy bruising. Skin: Denies rash or itching. PMFSH - History History Provided By: Family Member - Medical History Medical History: Medical History (Last Updated 11/30/17 @ 12:00 by YVES Casey) Atrial fibrillation Dementia Diabetes High cholesterol Pacemaker Pneumonia - Surgical History Surgical History: Surgical History (Last Updated 11/30/17 @ 12:00 by YVES Casey) History of heart artery stent - Tobacco History Smoking Status: Former smoker - Alcohol History How Often Do You Have a Drink Containing Alcohol: 2 to 4 times a month - Travel History Recent Travel in the [place] Within the Last 8 Weeks: No Recent Travel Out of the Country Within the Last 8 Weeks: No - Immunization History Tetanus Immunization: Unsure Hx Influenza Vaccine This Season: Yes Medications and Allergies Allergies Allergy/AdvReac Type Severity Reaction Status Date / Time No Known Allergies Allergy Verified 11/30/17 15:30 Home Medications Medication Instructions Recorded Confirmed Type apixaban [Eliquis] 2.5 mg PO BID 11/30/17 11/30/17 History aspirin 81 mg PO DAILY 11/30/17 11/30/17 History atorvastatin 20 mg PO DAILY 11/30/17 11/30/17 History donepezil 10 mg PO DAILY 11/30/17 11/30/17 History duloxetine 60 mg PO DAILY 11/30/17 11/30/17 History memantine 10 mg PO BID 11/30/17 11/30/17 History [id number] acid-lutein [Centrum 1 tab PO DAILY 11/30/17 11/30/17 History Silver] pregabalin [Lyrica] 50 mg PO TID PRN 11/30/17 11/30/17 History sitagliptin [Januvia] 50 mg PO DAILY 11/30/17 11/30/17 History Active Medications: Active Medications Al Hydroxide/Mg Hydroxide (Milk Of Kaitlin Torres) 30 ml PO Q12H PRN PRN Reason: Mild Constipation Apixaban (Eliquis) 2.5 mg PO BID VERONICA Aspirin (Aspirin Chew) 81 mg PO DAILY VERONICA Atorvastatin Calcium (Lipitor) 20 mg PO DAILY VERONICA Bisacodyl (Dulcolax Supp) 10 mg RECTAL DAILY PRN PRN Reason: SEVERE CONSITIPATION Dextrose (D50w Vial) 50 ml IV.PUSH UNSCH PRN PRN Reason: PER HYPOGLYCEMIA PROTOCOL Donepezil HCl (Aricept) 10 mg PO DAILY VERONICA Duloxetine HCl (Cymbalta) 60 mg PO DAILY VERONICA Glucagon (Glucagon Inj) 1 mg OTHER PRN PRN PRN Reason: for Hypoglycemia Protocol Insulin Aspart (Novolog Insulin Correctional Sugar Inj) 0 unit SQ ACHS [facility]; Protocol Last Admin: 11/30/17 16:34 Dose: Not Given Lactulose (Lactulose Liq) 30 ml PO DAILY PRN PRN Reason: SEVERE CONSITIPATION Memantine (Namenda) 10 mg PO BID VERONICA Pregabalin (Lyrica) 50 mg PO TID PRN PRN Reason: PAIN SCALE 1 TO 10 Senna/Docusate Sodium (Minerva-Colace) 1 tab PO BID VERONICA Sennosides (Senokot) 17.2 mg PO Q12H PRN PRN Reason: Moderate Constipation Exam Vital signs: Vital Signs 11/30/17 10:50 11/30/17 11:55 11/30/17 13:00 Temperature 98 F Pulse Rate 84 74 76 Respiratory Rate 20 18 Blood Pressure 115/75 120/79 Pulse Oximetry 99 100 99 11/30/17 15:05 Temperature Pulse Rate 78 Respiratory Rate 18 Blood Pressure 130/78 Pulse Oximetry 95 Intake & Output 11/29/17 11/30/17 11/30/17 18:59 06:59 18:59 Intake Total 100 / 100 Balance 100 / 100 Weight 90.718 kg Intake: IV 100 / 100 Rocephin Inj 2,000 MG In NS Inj 100 / 100 100 ML @ 200 mls/hr IV.SIG ONCE ONE Rx#:[id number] Narrative: GENERAL: This is a well-nourished, well-developed patient, in no apparent distress. Patient speaks in clear complete sentences. Patient is pleasant. HEENT: Head is atraumatic and normocephalic. Neck is supple without lymphadenopathy and trachea is midline. No JVD or carotid bruits. CARDIOVASCULAR: Ventricularly paced, without murmurs, gallops, or rubs. RESPIRATORY: Right upper lobe is diminished with rhonchi, bilateral lower lobes fine crackles. No wheezes. Chest wall is nontender. No use of accessory muscles. GASTROINTESTINAL: Abdomen is nontender, nondistended. Abdomen soft. No obvious pulsatile mass or bruit. No CVA tenderness. Strong femoral pulses bilaterally. Normal bowel sounds in all quadrants. MUSCULOSKELETAL: Patient is moving upper and lower extremities freely. No calf tenderness, 2+ edema LE bilateral. no Homans sign. Strong pulses in upper and lower extremities. NEUROLOGICAL: Patient is alert and oriented. Cranial nerves 2-12 are grossly intact. No focal deficits and speech is clear. SKIN: No rash and turgor is normal. Results 11/30/17 12:10 11/30/17 12:10 Cardiac Enzymes 11/30/17 11/30/17 Range/Units 12:10 12:10 AST 117 H (15-37) U/L CK-MB (CK-2) 4.0 H (0.5-3.6) ng/mL Troponin I 1.21 H* (0.02-0.05) ng/mL B-Natriuretic Peptide 1433 H (0-100) pg/mL Coagulation 11/30/17 11/30/17 Range/Units 12:10 12:10 PT 14.2 H (9.8-11.6) sec B-Natriuretic Peptide 1433 H (0-100) pg/mL CBC 11/30/17 Range/Units 12:10 WBC 7.9 (4.0-11.0) th/mm3 RBC 3.58 L (4.50-5.90) mil/mm3 Hgb 11.9 L (13.0-17.0) gm/dL Hct 35.3 L (39.0-51.0) % Plt Count 148 L (150-450) th/mm3 Neut # (Auto) 5.6 (1.8-7.7) th/mm3 Lymph # (Auto) 1.1 (1.0-4.8) th/mm3 [place] # (Auto) 1.1 H (0.0-0.9) th/mm3 Eos # (Auto) 0.1 (0.0-0.4) th/mm3 Baso # (Auto) 0.0 (0.0-0.2) th/mm3 Comprehensive Metabolic Panel 11/30/17 Range/Units 12:10 Sodium 139 (136-145) meq/L Potassium 4.7 (3.5-5.1) meq/L Chloride 103 (98-107) meq/L Carbon Dioxide 27.0 (21.0-32.0) meq/L BUN 68 H (7-18) mg/dL Creatinine 2.32 H (0.60-1.30) mg/dL Calcium 8.7 (8.5-10.1) mg/dL AST 117 H (15-37) U/L ALT 266 H (12-78) U/L Alkaline Phosphatase 293 H (45-117) U/L Total Protein 6.7 (6.4-8.2) g/dL Albumin 2.7 L (3.4-5.0) g/dL Intake and Output 11/30/17 11/30/17 11/30/17 06:59 14:59 22:59 Intake Total 100 / 100 Balance 100 / 100 Intake: IV 100 / 100 Rocephin Inj 2,000 MG In NS Inj 100 / 100 100 ML @ 200 mls/hr IV.SIG ONCE ONE Rx#:[id number] Other: Weight 90.718 kg Patient Weight 12/01/17 06:59 Weight 90.718 kg EKG interpretations - ND, pacemaker, normal Pacemaker: ventricular pacing w/capture (except when refractory) Assessment and Plan - Assessment (1) CHF (congestive heart failure) Code(s): I50.9 - Heart failure, unspecified Status: Acute (2) Pneumonia Code(s): J18.9 - Pneumonia, unspecified organism Status: Acute (3) Acute renal failure (ARF) Code(s): N17.9 - Acute kidney failure, unspecified Status: Acute (4) Elevated troponin Code(s): R74.8 - Abnormal levels of other serum enzymes Status: Acute - Plan Patient currently has elevated troponin levels, will order cardiac enzymes series along with a 12-lead EKG. Although troponin levels are elevated, BUN and creatinine are greatly elevated BUN is 68 creatinine is 2.32 with a GFR of 27, cardiac catheterization at this time will increase his risk for contrast nephropathy and renal failure possibly requiring permanent dialysis. Per chest x-ray patient possibly has pneumonia in the right upper lobe and is being treated with IV antibiotics. Will continue diuresis with 40 mg of Lasix IV daily and continue aspirin 81 mg daily, Eliquis 2.5 mg twice daily, nitro paste half an inch every 12 hours off at night, start him on metoprolol 25 mg half tab twice daily. Order a 2D echo to assess left ventricular function. Consult nephrology due to elevated BUN and creatinine. Patient does have elevated liver enzymes will order fasting lipids tomorrow. Will follow patient during hospitalization. Will adjust cardiac treatment plan as needed. Discussed treatment plan with patient and family. The patient was seen and evaluated by Dr. Rehman who participated in care, management and decision-making. <Layne Rehman - Last Filed: 11/30/17 22:23> History of Present Illness Primary Care Provider: Micah Hyatt [facility] - Medical History Medical History: Medical History (Last Updated 11/30/17 @ 12:00 by YVES Casey) Atrial fibrillation Dementia Diabetes High cholesterol Pacemaker Pneumonia - Surgical History Surgical History: Surgical History (Last Updated 11/30/17 @ 12:00 by YVES Casey) History of heart artery stent Medications and Allergies Active Medications: Active Medications Al Hydroxide/Mg Hydroxide (Milk Of Magnesia Liq) 30 ml PO Q12H PRN PRN Reason: Mild Constipation Apixaban (Eliquis) 2.5 mg PO BID [facility] Last Admin: 11/30/17 22:08 Dose: 2.5 mg Aspirin (Aspirin Chew) 81 mg PO DAILY VERONICA Atorvastatin Calcium (Lipitor) 80 mg PO HS [facility] Last Admin: 11/30/17 22:08 Dose: 80 mg Bisacodyl (Dulcolax Supp) 10 mg RECTAL DAILY PRN PRN Reason: SEVERE CONSITIPATION Dextrose (D50w Vial) 50 ml IV.PUSH UNSCH PRN PRN Reason: PER HYPOGLYCEMIA PROTOCOL Donepezil HCl (Aricept) 10 mg PO DAILY [facility] Duloxetine HCl (Cymbalta) 60 mg PO DAILY VERONICA Furosemide (Lasix Inj) 40 mg IV.PUSH DAILY VERONICA Glucagon (Glucagon Inj) 1 mg OTHER PRN PRN PRN Reason: for Hypoglycemia Protocol Insulin Aspart (Novolog Insulin Correctional Sugar Inj) 0 unit SQ ACHS [facility]; Protocol Last Admin: 11/30/17 22:09 Dose: 5 unit Lactulose (Lactulose Liq) 30 ml PO DAILY PRN PRN Reason: SEVERE CONSITIPATION Memantine (Namenda) 10 mg PO BID [facility] Last Admin: 11/30/17 22:09 Dose: 10 mg Metoprolol Tartrate (Lopressor) 12.5 mg PO BID [facility] Last Admin: 11/30/17 22:08 Dose: 12.5 mg Nitroglycerin (Nitro-Bid 2% Oint) 0.5 inch TOPICAL Q8HR [facility] Last Admin: 11/30/17 22:09 Dose: 0.5 inch Pregabalin (Lyrica) 50 mg PO TID PRN PRN Reason: PAIN SCALE 1 TO 10 Senna/Docusate Sodium (Minerva-Colace) 1 tab PO BID VERONICA Last Admin: 11/30/17 22:09 Dose: 1 tab Sennosides (Senokot) 17.2 mg PO Q12H PRN PRN Reason: Moderate Constipation Exam Vital signs: Vital Signs 11/30/17 10:50 11/30/17 11:55 11/30/17 13:00 Temperature 98 F Pulse Rate 84 74 76 Respiratory Rate 20 18 Blood Pressure 115/75 120/79 Pulse Oximetry 99 100 99 11/30/17 15:05 11/30/17 17:00 11/30/17 18:24 Temperature Pulse Rate 78 84 75 Respiratory Rate 18 14 18 Blood Pressure 130/78 106/62 106/62 Pulse Oximetry 95 100 11/30/17 19:54 Temperature 98.2 F Pulse Rate 80 Respiratory Rate 16 Blood Pressure 117/67 Pulse Oximetry 97 Intake & Output 11/30/17 11/30/17 12/01/17 06:59 18:59 06:59 Intake Total 350 / 350 Output Total 250 / 250 Balance 100 / 100 Weight 200 lb Intake: IV 350 / 350 Azithromycin Inj 500 MG In NS 250 / 250 Inj 250 ML @ 250 mls/hr IV.SIG ONCE ONE Rx#:[id number] Rocephin Inj 2,000 MG In NS Inj 100 / 100 100 ML @ 200 mls/hr IV.SIG ONCE ONE Rx#:[id number] Output: Urine 250 / 250 Other: # Incontinent Voids 2 Results 11/30/17 12:10 11/30/17 12:10 Cardiac Enzymes 11/30/17 11/30/17 11/30/17 Range/Units 12:10 12:10 18:30 AST 117 H (15-37) U/L CK-MB (CK-2) 4.0 H (0.5-3.6) ng/mL Troponin I 1.21 H* 1.38 H* (0.02-0.05) ng/mL B-Natriuretic Peptide 1433 H (0-100) pg/mL Coagulation 11/30/17 11/30/17 Range/Units 12:10 12:10 PT 14.2 H (9.8-11.6) sec B-Natriuretic Peptide 1433 H (0-100) pg/mL CBC 11/30/17 Range/Units 12:10 WBC 7.9 (4.0-11.0) th/mm3 RBC 3.58 L (4.50-5.90) mil/mm3 Hgb 11.9 L (13.0-17.0) gm/dL Hct 35.3 L (39.0-51.0) % Plt Count 148 L (150-450) th/mm3 Neut # (Auto) 5.6 (1.8-7.7) th/mm3 Lymph # (Auto) 1.1 (1.0-4.8) th/mm3 [place] # (Auto) 1.1 H (0.0-0.9) th/mm3 Eos # (Auto) 0.1 (0.0-0.4) th/mm3 Baso # (Auto) 0.0 (0.0-0.2) th/mm3 Comprehensive Metabolic Panel 11/30/17 Range/Units 12:10 Sodium 139 (136-145) meq/L Potassium 4.7 (3.5-5.1) meq/L Chloride 103 (98-107) meq/L Carbon Dioxide 27.0 (21.0-32.0) meq/L BUN 68 H (7-18) mg/dL Creatinine 2.32 H (0.60-1.30) mg/dL Calcium 8.7 (8.5-10.1) mg/dL AST 117 H (15-37) U/L ALT 266 H (12-78) U/L Alkaline Phosphatase 293 H (45-117) U/L Total Protein 6.7 (6.4-8.2) g/dL Albumin 2.7 L (3.4-5.0) g/dL Intake and Output 11/30/17 11/30/17 11/30/17 06:59 14:59 22:59 Intake Total 350 / 350 Output Total 250 / 250 Balance 100 / 100 Intake: IV 350 / 350 Azithromycin Inj 500 MG In NS 250 / 250 Inj 250 ML @ 250 mls/hr IV.SIG ONCE ONE Rx#:[id number] Rocephin Inj 2,000 MG In NS Inj 100 / 100 100 ML @ 200 mls/hr IV.SIG ONCE ONE Rx#:[id number] Output: Urine 250 / 250 Other: # Incontinent Voids 2 Weight 200 lb Patient Weight 12/01/17 06:59 Weight 200 lb Assessment and Plan - Assessment (1) CHF (congestive heart failure) Code(s): I50.9 - Heart failure, unspecified Status: Acute (2) Pneumonia Code(s): J18.9 - Pneumonia, unspecified organism Status: Acute (3) Acute renal failure (ARF) Code(s): N17.9 - Acute kidney failure, unspecified Status: Acute (4) Elevated troponin Code(s): R74.8 - Abnormal levels of other serum enzymes Status: Acute - Attending Attestation Patient seen and examined. I reviewed and agree with the evaluation and plan as presented. Continue monitoring. Check echo to evaluate LV fx. Nephrology evaluation. D/w pt and family. <Meg Thao - Last Filed: 11/30/17 16:52> (1) CHF (congestive heart failure) Qualifiers: Heart failure type: unspecified Heart failure chronicity: unspecified Qualified Code(s): I50.9 - Heart failure, unspecified (2) Pneumonia Qualifiers: Pneumonia type: due to unspecified organism Laterality: unspecified laterality Lung location: unspecified part of lung Qualified Code(s): J18.9 - Pneumonia, unspecified organism (3) Acute renal failure (ARF) Qualifiers: Acute renal failure type: unspecified Qualified Code(s): N17.9 - Acute kidney failure, unspecified <Layne Rehman - Last Filed: 11/30/17 22:23> (1) CHF (congestive heart failure) Qualifiers: Qualified Code(s): I50.9 - Heart failure, unspecified (2) Pneumonia Qualifiers: Qualified Code(s): J18.9 - Pneumonia, unspecified organism (3) Acute renal failure (ARF) Qualifiers: Qualified Code(s): N17.9 - Acute kidney failure, unspecified
[2017-11-30] MEDS: Metoprolol Tartrate 25 MG Tablet PO SCH (22:08)
[2017-11-30] MEDS: Senna/Docusate Sodium 8.6/50 MG Tablet PO SCH (22:09)
[2017-12-01 06:21] LABS: Baso % (Auto) 0.2 % (0.0-2.0); Eos % (Auto) 0.5 % (0.0-4.0); Lymph % (Auto) 11.5 % (9.0-44.0); Mean Corpuscular HGB Conc 33.3 % (32.0-36.0); Mean Corpuscular Hemoglobin 32.7 pg (27.0-34.0); Mean Corpuscular Volume 98.3 fL (80.0-100.0); Mean Platelet Volume 10.2 fL (7.0-11.0); Mono # (Auto) 1.1 th/mm3 (0.0-0.9); Mono % (Auto) 11.7 % (0.0-8.0); Neut # (Auto) 6.9 th/mm3 (1.8-7.7); Neut % (Auto) 76.1 % (16.0-70.0); Platelet Count 147 th/mm3 (150-450); Red Blood Count 3.66 mil/mm3 (4.50-5.90); Red Cell Distribution Width 14.1 % (11.6-17.2); White Blood Count 9.1 th/mm3 (4.0-11.0)
[2017-12-01 06:50] LABS: Alanine Aminotransferase 286 U/L (12-78); Albumin 2.7 g/dL (3.4-5.0); Anion Gap 7 meq/L (5-15); Aspartate Aminotransferase 192 U/L (15-37); Blood Urea Nitrogen 74 mg/dL (7-18); Calcium 8.7 mg/dL (8.5-10.1); Carbon Dioxide 28.3 meq/L (21.0-32.0); Chloride 108 meq/L (98-107); Glomerular Filtration Rate 25 mL/min (>89); Glucose,Random 71 mg/dL (74-106); Sodium 143 meq/L (136-145)
[2017-12-01 06:52] LABS: Alkaline Phosphatase 359 U/L (45-117); Chol/HDL Ratio 1.56 Ratio; HDL Cholesterol 37.8 mg/dL (40.0-60.0); Total Protein 6.3 g/dL (6.4-8.2)
[2017-12-01 07:40] LABS: Troponin I 1.56 ng/mL (0.02-0.05)
--- NOTE | 2017-12-01 08:24 | P.CONNP ---
<MaríaLesly - Last Filed: 12/01/17 09:39> History of Present Illness Service: Nephrology Consult date: 12/01/17 Requesting Physician: Meg Thao Reason for Consult: Elevated in BUN and creatinine Primary Care Provider: Micah Hyatt MD Chief Complaint: Swelling of the lower extremities and SOB History of Present Illness: Patient is an 87-year-old male with a past medical history of AFIB, dementia, diabetes, hyperlipidemia, and pacemaker. Presented to the emergency department for evaluation by primary care provider for shortness of breath, bilateral lower extremity edema, and increased weakness. Was found to have elevated troponin and pneumonia. Most information is obtained from chart as patient is not oriented this morning. Nephrology is consulted for elevated BUN and creatinine. Creatinine on admission was 2.32 and now has increased to 2.49. Baseline creatinine is not available. Potassium level is normal. Bilateral lower extremity edema noted. Does not report chest pain or shortness of breath this morning however on admission shortness of breath was reported and BNP elevated at 1433. Has been given lasix X 2. Review of Systems Cardiovascular: Denies chest pain PMFSH - History History Provided By: Family Member - Medical History Medical History: Medical History (Last Updated 11/30/17 @ 12:00 by YVES Casey) Atrial fibrillation Dementia Diabetes High cholesterol Pacemaker Pneumonia - Surgical History Surgical History: Surgical History (Last Updated 11/30/17 @ 12:00 by YVES Casey) History of heart artery stent - Tobacco History Second Hand Smoke Exposure: Yes Smoking Status: Former smoker - Alcohol History How Often Do You Have a Drink Containing Alcohol: 2 to 4 times a month - Substance Use History Substance History: No History of Abuse - Travel History Recent Travel in the [place] Within the Last 8 Weeks: No Recent Travel Out of the Country Within the Last 8 Weeks: No - Immunization History Tetanus Immunization: Unsure Hx Influenza Vaccine This Season: Yes Medications and Allergies Allergies Allergy/AdvReac Type Severity Reaction Status Date / Time No Known Allergies Allergy Verified 11/30/17 15:30 Home Medications Medication Instructions Recorded Confirmed Type apixaban [Eliquis] 2.5 mg PO BID 11/30/17 11/30/17 History aspirin 81 mg PO DAILY 11/30/17 11/30/17 History atorvastatin 20 mg PO DAILY 11/30/17 11/30/17 History donepezil 10 mg PO DAILY 11/30/17 11/30/17 History duloxetine 60 mg PO DAILY 11/30/17 11/30/17 History memantine 10 mg PO BID 11/30/17 11/30/17 History [id number] acid-lutein [Centrum 1 tab PO DAILY 11/30/17 11/30/17 History Silver] pregabalin [Lyrica] 50 mg PO TID PRN 11/30/17 11/30/17 History sitagliptin [Januvia] 50 mg PO DAILY 11/30/17 11/30/17 History Active Medications: Active Medications Al Hydroxide/Mg Hydroxide (Milk Of Magnesia Liq) 30 ml PO Q12H PRN PRN Reason: Mild Constipation Apixaban (Eliquis) 2.5 mg PO BID [facility] Last Admin: 11/30/17 22:08 Dose: 2.5 mg Aspirin (Aspirin Chew) 81 mg PO DAILY [facility] Atorvastatin Calcium (Lipitor) 80 mg PO HS [facility] Last Admin: 11/30/17 22:08 Dose: 80 mg Bisacodyl (Dulcolax Supp) 10 mg RECTAL DAILY PRN PRN Reason: SEVERE CONSITIPATION Dextrose (D50w Vial) 50 ml IV.PUSH UNSCH PRN PRN Reason: PER HYPOGLYCEMIA PROTOCOL Donepezil HCl (Aricept) 10 mg PO DAILY [facility] Duloxetine HCl (Cymbalta) 60 mg PO DAILY [facility] Furosemide (Lasix Inj) 40 mg IV.PUSH DAILY [facility] Glucagon (Glucagon Inj) 1 mg OTHER PRN PRN PRN Reason: for Hypoglycemia Protocol Insulin Aspart (Novolog Insulin Correctional Sugar Inj) 0 unit SQ ACHS [facility]; Protocol Last Admin: 11/30/17 22:09 Dose: 5 unit Lactulose (Lactulose Liq) 30 ml PO DAILY PRN PRN Reason: SEVERE CONSITIPATION Memantine (Namenda) 10 mg PO BID [facility] Last Admin: 11/30/17 22:09 Dose: 10 mg Metoprolol Tartrate (Lopressor) 12.5 mg PO BID [facility] Last Admin: 11/30/17 22:08 Dose: 12.5 mg Nitroglycerin (Nitro-Bid 2% Oint) 0.5 inch TOPICAL Q8HR [facility] Last Admin: 12/01/17 06:05 Dose: Not Given Pregabalin (Lyrica) 50 mg PO TID PRN PRN Reason: PAIN SCALE 1 TO 10 Senna/Docusate Sodium (Minerva-Colace) 1 tab PO BID [facility] Last Admin: 11/30/17 22:09 Dose: 1 tab Sennosides (Senokot) 17.2 mg PO Q12H PRN PRN Reason: Moderate Constipation Exam Vital signs: Vital Signs 11/30/17 10:50 11/30/17 11:55 11/30/17 13:00 Temperature 98 F Pulse Rate 84 74 76 Respiratory Rate 20 18 Blood Pressure 115/75 120/79 Pulse Oximetry 99 100 99 11/30/17 15:05 11/30/17 17:00 11/30/17 18:24 Temperature Pulse Rate 78 84 75 Respiratory Rate 18 14 18 Blood Pressure 130/78 106/62 106/62 Pulse Oximetry 95 100 11/30/17 19:54 11/30/17 23:21 12/01/17 03:23 Temperature 98.2 F 97.9 F 97.8 F Pulse Rate 80 63 107 H Respiratory Rate 16 16 16 Blood Pressure 117/67 98/69 L Pulse Oximetry 97 95 90 L Intake & Output 11/30/17 12/01/17 12/01/17 18:59 06:59 18:59 Intake Total 350 / 350 Output Total 250 / 250 Balance 100 / 100 Weight 90.718 kg Intake: IV 350 / 350 Azithromycin Inj 500 MG In NS 250 / 250 Inj 250 ML @ 250 mls/hr IV.SIG ONCE ONE Rx#:[id number] Rocephin Inj 2,000 MG In NS Inj 100 / 100 100 ML @ 200 mls/hr IV.SIG ONCE ONE Rx#:[id number] Output: Urine 250 / 250 Other: # Incontinent Voids 2 - Constitutional no acute distress - Routine HEENT Exam Head: Present: normocephalic - Routine Neck Exam Present: supple. Absent: JVD - Routine Respiratory Exam Present: decreased breath sounds. Absent: rales, rhonchi, wheezes - Routine Cardiovascular Exam Present: irregular rhythm - Routine Abdominal Exam Present: soft, normoactive bowel sounds. Absent: tenderness - Routine Extremities Exam Present: edema - Routine Skin Exam Present: intact, dry, warm - Routine Neurological Exam Present: alert oriented X 1 Results - Lab Results 12/01/17 05:55 12/01/17 05:55 Most recent lab results Calcium 8.7 mg/dL (8.5-10.1) 12/01/17 05:55 Magnesium 2.5 mg/dL (1.5-2.5) 11/30/17 12:10 - Image Kidney/bladder ultrasound: pending Assessment and Plan - Assessment (1) Acute renal failure (ARF) Code(s): N17.9 - Acute kidney failure, unspecified Status: Acute Plan: Acute kidney injury with a creatinine on admission was 2.32 and now has increased to 2.49. Patient may have some underlying chronic kidney disease but baseline creatinine is not available. Acute kidney injury possibly prerenal/ATN from poor intake and infection. Will order renal ultrasound Urine for sodium, urea, and osmolarity. Urinalysis Continue lasix may need to hold if creatinine continues to rise Maintain strict I+O Avoid nephrotoxins including aminoglycosides, NSAIDS, and IV contrast Heart cath is on hold with elevated BUN and creatinine, patient at risk for contrast nephropathy Monitor urinary output and BMP (2) CHF (congestive heart failure) Code(s): I50.9 - Heart failure, unspecified Status: Acute Plan: Has received Lasix X 2 (3) Pneumonia Code(s): J18.9 - Pneumonia, unspecified organism Status: Acute Plan: Started on antibiotics (4) Diabetes Code(s): E11.9 - Type 2 diabetes mellitus without complications Status: Acute Plan: Maintain blood sugar between 140 mg/dl to 180 mg/dl <Gerri Prajapati Q - Last Filed: 12/01/17 18:59> History of Present Illness Primary Care Provider: Micah Hyatt MD [facility] - Medical History Medical History: Medical History (Last Updated 11/30/17 @ 12:00 by YVES Casey) Atrial fibrillation Dementia Diabetes High cholesterol Pacemaker Pneumonia - Surgical History Surgical History: Surgical History (Last Updated 11/30/17 @ 12:00 by YVES Casey) History of heart artery stent Medications and Allergies Active Medications: Active Medications Al Hydroxide/Mg Hydroxide (Milk Of Magnnatanael Liq) 30 ml PO Q12H PRN PRN Reason: Mild Constipation Apixaban (Eliquis) 2.5 mg PO BID [facility] Last Admin: 12/01/17 09:47 Dose: 2.5 mg Aspirin (Aspirin Chew) 81 mg PO DAILY [facility] Last Admin: 12/01/17 09:46 Dose: 81 mg Atorvastatin Calcium (Lipitor) 80 mg PO HS [facility] Last Admin: 11/30/17 22:08 Dose: 80 mg Bisacodyl (Dulcolax Supp) 10 mg RECTAL DAILY PRN PRN Reason: SEVERE CONSITIPATION Dextrose (D50w Vial) 50 ml IV.PUSH UNSCH PRN PRN Reason: PER HYPOGLYCEMIA PROTOCOL Donepezil HCl (Aricept) 10 mg PO DAILY [facility] Last Admin: 12/01/17 09:45 Dose: 10 mg Duloxetine HCl (Cymbalta) 60 mg PO DAILY [facility] Last Admin: 12/01/17 09:46 Dose: 60 mg Furosemide (Lasix Inj) 40 mg IV.PUSH DAILY [facility] Last Admin: 12/01/17 09:47 Dose: 40 mg Glucagon (Glucagon Inj) 1 mg OTHER PRN PRN PRN Reason: for Hypoglycemia Protocol Ceftriaxone Sodium 2,000 mg/ (Sodium Chloride) 100 mls @ 200 mls/hr IV.SIG Q24H [facility] Azithromycin 500 mg/ Sodium (Chloride) 250 mls @ 250 mls/hr IV.SIG Q24H [facility] Insulin Aspart (Novolog Insulin Correctional Sugar Inj) 0 unit SQ ACHS [facility]; Protocol Last Admin: 12/01/17 16:22 Dose: Not Given Lactulose (Lactulose Liq) 30 ml PO DAILY PRN PRN Reason: SEVERE CONSITIPATION Memantine (Namenda) 10 mg PO BID [facility] Last Admin: 12/01/17 09:46 Dose: 10 mg Metoprolol Tartrate (Lopressor) 12.5 mg PO BID [facility] Last Admin: 12/01/17 09:46 Dose: 12.5 mg Nitroglycerin (Nitro-Bid 2% Oint) 0.5 inch TOPICAL Q8HR [facility] Last Admin: 12/01/17 16:22 Dose: Not Given Pregabalin (Lyrica) 50 mg PO TID PRN PRN Reason: PAIN SCALE 1 TO 10 Senna/Docusate Sodium (Minerva-Colace) 1 tab PO BID [facility] Last Admin: 12/01/17 09:45 Dose: 1 tab Sennosides (Senokot) 17.2 mg PO Q12H PRN PRN Reason: Moderate Constipation Exam Vital signs: Vital Signs 11/30/17 19:54 11/30/17 23:21 12/01/17 03:23 Temperature 98.2 F 97.9 F 97.8 F Pulse Rate 80 63 107 H Respiratory Rate 16 16 16 Blood Pressure 117/67 98/69 L Pulse Oximetry 97 95 90 L 12/01/17 08:00 12/01/17 12:00 12/01/17 16:00 Temperature 98.7 F 98.7 F 98.8 F Pulse Rate 60 62 63 Respiratory Rate 18 18 16 Blood Pressure 113/67 94/70 L Pulse Oximetry 99 94 L 94 L Intake & Output 11/30/17 12/01/17 12/01/17 18:59 06:59 18:59 Intake Total 350 / 350 Output Total 250 / 250 Balance 100 / 100 Weight 90.718 kg 80.11 kg Intake: IV 350 / 350 Azithromycin Inj 500 MG In NS 250 / 250 Inj 250 ML @ 250 mls/hr IV.SIG ONCE ONE Rx#:[id number] Rocephin Inj 2,000 MG In NS Inj 100 / 100 100 ML @ 200 mls/hr IV.SIG ONCE ONE Rx#:[id number] Output: Urine 250 / 250 Other: # Incontinent Voids 2 Date of Last Bowel Movement 11/30/17 Results - Lab Results 12/01/17 05:55 12/01/17 05:55 Most recent lab results Calcium 8.7 mg/dL (8.5-10.1) 12/01/17 05:55 Magnesium 2.5 mg/dL (1.5-2.5) 11/30/17 12:10 Assessment and Plan - Assessment (1) Acute renal failure (ARF) Code(s): N17.9 - Acute kidney failure, unspecified Status: Acute (2) CHF (congestive heart failure) Code(s): I50.9 - Heart failure, unspecified Status: Acute (3) Pneumonia Code(s): J18.9 - Pneumonia, unspecified organism Status: Acute (4) Diabetes Code(s): E11.9 - Type 2 diabetes mellitus without complications Status: Acute - Attending Attestation Patient seen and examine, agree with above. Has possibly chronic kidney disease and develop TUTU. Send serology, U/S Kidneys. Echo. results noted. <Lesly Daniel - Last Filed: 12/01/17 09:39> (1) Acute renal failure (ARF) Qualifiers: Acute renal failure type: unspecified Qualified Code(s): N17.9 - Acute kidney failure, unspecified (2) CHF (congestive heart failure) Qualifiers: Heart failure type: unspecified Heart failure chronicity: unspecified Qualified Code(s): I50.9 - Heart failure, unspecified (3) Pneumonia Qualifiers: Pneumonia type: due to unspecified organism Laterality: unspecified laterality Lung location: unspecified part of lung Qualified Code(s): J18.9 - Pneumonia, unspecified organism <Gerri Prajapati Q - Last Filed: 12/01/17 18:59> (1) Acute renal failure (ARF) Qualifiers: Acute renal failure type: unspecified Qualified Code(s): N17.9 - Acute kidney failure, unspecified (2) CHF (congestive heart failure) Qualifiers: Heart failure type: unspecified Heart failure chronicity: unspecified Qualified Code(s): I50.9 - Heart failure, unspecified (3) Pneumonia Qualifiers: Pneumonia type: due to unspecified organism Laterality: unspecified laterality Lung location: unspecified part of lung Qualified Code(s): J18.9 - Pneumonia, unspecified organism (4) Diabetes Qualifiers: Chronic kidney disease stage: stage 3 (moderate)
[2017-12-01] MEDS: Senna/Docusate Sodium 8.6/50 MG Tablet PO SCH ×2 (09:45→20:18)
[2017-12-01] MEDS: Duloxetine 60 MG DR Capsule PO SCH (09:46)
[2017-12-01] MEDS: Metoprolol Tartrate 25 MG Tablet PO SCH ×2 (09:46→20:16)
[2017-12-01] MEDS: Insulin NovoLOG Aspart Correctional Sugar Inj SQ SCH ×4 (10:17→23:42)
--- NOTE | 2017-12-01 11:10 | P.PNCA ---
<Meg Thao N - Last Filed: 12/01/17 10:48> Subjective Interval history: General: Patient denies fevers, chills, and recent travel. HEENT: Patient denies headache, sore throat, difficulty swallowing. Cardiovascular: Patient denies chest pain, dizziness. Denies sensation of heart beating rapidly or irregularly. No syncope. Respiratory: Denies shortness of breath or inspirational chest discomfort. Denies coughing wheezing or hemoptysis. GI: Patient denies nausea, vomiting, diarrhea, abdominal pain, bloody stools. Musculoskeletal: Patient denies joint pain or edema. Denies calf pain or edema. Neurovascular: Patient denies numbness, tingling, weakness in extremities. Denies headache. Endocrine: Denies polyuria and polydipsia. Hematologic: Denies easy bruising. Skin: Denies rash or itching. Physical Exam Vital signs: Vital Signs 11/30/17 10:50 11/30/17 11:55 11/30/17 13:00 Temperature 98 F Pulse Rate 84 74 76 Respiratory Rate 20 18 Blood Pressure 115/75 120/79 Pulse Oximetry 99 100 99 11/30/17 15:05 11/30/17 17:00 11/30/17 18:24 Temperature Pulse Rate 78 84 75 Respiratory Rate 18 14 18 Blood Pressure 130/78 106/62 106/62 Pulse Oximetry 95 100 11/30/17 19:54 11/30/17 23:21 12/01/17 03:23 Temperature 98.2 F 97.9 F 97.8 F Pulse Rate 80 63 107 H Respiratory Rate 16 16 16 Blood Pressure 117/67 98/69 L Pulse Oximetry 97 95 90 L 12/01/17 08:00 Temperature 98.7 F Pulse Rate 60 Respiratory Rate 18 Blood Pressure Pulse Oximetry 99 Intake & Output 11/30/17 12/01/17 12/01/17 18:59 06:59 18:59 Intake Total 350 / 350 Output Total 250 / 250 Balance 100 / 100 Weight 90.718 kg 80.11 kg Intake: IV 350 / 350 Azithromycin Inj 500 MG In NS 250 / 250 Inj 250 ML @ 250 mls/hr IV.SIG ONCE ONE Rx#:[id number] Rocephin Inj 2,000 MG In NS Inj 100 / 100 100 ML @ 200 mls/hr IV.SIG ONCE ONE Rx#:[id number] Output: Urine 250 / 250 Other: # Incontinent Voids 2 Narrative: GENERAL: This is a well-nourished, well-developed patient, in no apparent distress. Patient speaks in clear complete sentences. Patient is pleasant. HEENT: Head is atraumatic and normocephalic. Neck is supple without lymphadenopathy and trachea is midline. No JVD or carotid bruits. CARDIOVASCULAR: Regular rate and rhythm without murmurs, gallops, or rubs. Patient ventricularly paced. RESPIRATORY: Breath sounds equal bilaterally. No wheezes or rhonchi. Rales bilaterally lower lobes. Chest wall is nontender. No use of accessory muscles. GASTROINTESTINAL: Abdomen is nontender, nondistended. Abdomen soft. No obvious pulsatile mass or bruit. No CVA tenderness. Strong femoral pulses bilaterally. Normal bowel sounds in all quadrants. MUSCULOSKELETAL: Patient is moving upper and lower extremities freely. No calf tenderness, 2+ edema LE. no Homans sign. Strong pulses in upper and lower extremities. NEUROLOGICAL: Patient is alert and oriented. Cranial nerves 2-12 are grossly intact. No focal deficits and speech is clear. SKIN: No rash and turgor is normal. Assessment and Plan - Assessment (1) CHF (congestive heart failure) Code(s): I50.9 - Heart failure, unspecified Status: Acute (2) Pneumonia Code(s): J18.9 - Pneumonia, unspecified organism Status: Acute (3) Acute renal failure (ARF) Code(s): N17.9 - Acute kidney failure, unspecified Status: Acute (4) Elevated troponin Code(s): R74.8 - Abnormal levels of other serum enzymes Status: Acute - Plan BUN, creatinine and liver enzymes have worsened since yesterday. Troponin slightly elevated, cardiac catheterization at this time will increase his risk for contrast nephropathy and renal failure possibly requiring permanent dialysis. Waiting on 2D echo to determine left ventricular function. Patient status is not looking well and the severity of his condition was discussed with him and his son. Discussed patient's status with primary care team. Will follow patient during hospitalization. Will adjust cardiac treatment plan as needed. The patient was seen and evaluated by Dr. Rehman who participated in care, management and decision-making. <Layne Rehman - Last Filed: 12/01/17 13:56> Physical Exam Vital signs: Vital Signs 11/30/17 15:05 11/30/17 17:00 11/30/17 18:24 Temperature Pulse Rate 78 84 75 Respiratory Rate 18 14 18 Blood Pressure 130/78 106/62 106/62 Pulse Oximetry 95 100 11/30/17 19:54 11/30/17 23:21 12/01/17 03:23 Temperature 98.2 F 97.9 F 97.8 F Pulse Rate 80 63 107 H Respiratory Rate 16 16 16 Blood Pressure 117/67 98/69 L Pulse Oximetry 97 95 90 L 12/01/17 08:00 12/01/17 12:00 Temperature 98.7 F 98.7 F Pulse Rate 60 62 Respiratory Rate 18 18 Blood Pressure 113/67 Pulse Oximetry 99 94 L Intake & Output 11/30/17 12/01/17 12/01/17 18:59 06:59 18:59 Intake Total 350 / 350 Output Total 250 / 250 Balance 100 / 100 Weight 200 lb 176 lb 9.797 oz Intake: IV 350 / 350 Azithromycin Inj 500 MG In NS 250 / 250 Inj 250 ML @ 250 mls/hr IV.SIG ONCE ONE Rx#:[id number] Rocephin Inj 2,000 MG In NS Inj 100 / 100 100 ML @ 200 mls/hr IV.SIG ONCE ONE Rx#:[id number] Output: Urine 250 / 250 Other: # Incontinent Voids 2 Date of Last Bowel Movement 11/30/17 Assessment and Plan - Assessment (1) CHF (congestive heart failure) Code(s): I50.9 - Heart failure, unspecified Status: Acute (2) Pneumonia Code(s): J18.9 - Pneumonia, unspecified organism Status: Acute (3) Acute renal failure (ARF) Code(s): N17.9 - Acute kidney failure, unspecified Status: Acute (4) Elevated troponin Code(s): R74.8 - Abnormal levels of other serum enzymes Status: Acute - Attending Attestation Patient seen and examined. I reviewed and agree with the evaluation and plan as presented. Continue close monitoring. Echo today. Nephrology evaluation. Very high risk of contrast nephropathy. Situation d/w pt's son. <Meg Thao - Last Filed: 12/01/17 10:48> (1) CHF (congestive heart failure) Qualifiers: Heart failure type: unspecified Heart failure chronicity: unspecified Qualified Code(s): I50.9 - Heart failure, unspecified (2) Pneumonia Qualifiers: Pneumonia type: due to unspecified organism Laterality: unspecified laterality Lung location: unspecified part of lung Qualified Code(s): J18.9 - Pneumonia, unspecified organism (3) Acute renal failure (ARF) Qualifiers: Acute renal failure type: unspecified Qualified Code(s): N17.9 - Acute kidney failure, unspecified <Layne Rehman - Last Filed: 12/01/17 13:56> (1) CHF (congestive heart failure) Qualifiers: Qualified Code(s): I50.9 - Heart failure, unspecified (2) Pneumonia Qualifiers: Qualified Code(s): J18.9 - Pneumonia, unspecified organism (3) Acute renal failure (ARF) Qualifiers: Qualified Code(s): N17.9 - Acute kidney failure, unspecified
--- NOTE | 2017-12-01 11:24 | US ---
EXAM DATE: 12/01/2017 11:15 AM EDT AGE/SEX: 87 years / Male INDICATIONS: Increased BUN/creatinine. CLINICAL DATA: This is the patient's initial encounter. Patient reports that signs and symptoms have been present for 1 day and indicates a pain score of 0/10. MEDICAL/SURGICAL HISTORY: Hypercholesterolemia. AFib. Dementia. Diabetes. Pneumonia. [place] r. Coronary artery stent. COMPARISON: No prior exams available for comparison. MEASUREMENTS: Right Kidney:__10.0 x 4.9 x 5.1 cm Left Kidney:__9.3 x 4.1 x 5.5 cm FINDINGS: Right Kidney: The examination demonstrates mild cortical thinning. There is no hydronephrosis or mass identified. The renal cortex is slightly echogenic. Left Kidney: The examination demonstrates a 3.5 x 3.9 x 3.2 cm simple cyst. There is no hydronephrosi s. There is some mild thinning of the renal cortex. Bladder: Within normal limits given the degree of distension. Other: None. CONCLUSION: 1. Mild thinning of the renal cortex and slight increase in echogenicity this can be seen with under lying medical renal disease. 2. Small simple cyst identified in the left kidney. Electronically signed by: Edvin Cho MD 12/01/2017 11:23 AM EDT
--- NOTE | 2017-12-01 13:34 | ECG ---
Date Performed: 11/30/2017 Time Performed: 12:54:25 PTAGE: 87 years EKG: ELECTRONIC VENTRICULAR PACEMAKER ABNORMAL RHYTHM ECG NO PREVIOUS TRACING DOCTOR: Benedict Pablo Interpretating Date/Time 12/01/2017 13:32:51
--- NOTE | 2017-12-01 13:43 | ECG ---
Date Performed: 11/30/2017 Time Performed: 18:41:17 PTAGE: 87 years EKG: ELECTRONIC VENTRICULAR PACEMAKER ABNORMAL RHYTHM ECG NO PREVIOUS TRACING DOCTOR: Benedict Pablo Interpretating Date/Time 12/01/2017 13:41:50
--- NOTE | 2017-12-01 14:00 | P.PNFP ---
Subjective Interval history: Patient seen with resident team during medical rounds this morning. He is pleasantly confused this morning and he has no complaints. He specifically denies chest pain or shortness of breath. He denies dysuria or frequent urination. He denies pain and palpitations. In summary, this is an 87-year-old male with a history of dementia who presents with progressive shortness of breath and lower extremity edema. Over the last 2 weeks he has had increasing shortness of breath and dyspnea on exertion. With this, he has also had increase swelling of his bilateral lower legs. He is brought to the emergency department for further evaluation. PMH: DM HLD Afib Sx: Pacemaker- 2005 Stent 2005, 1997 Meds: ASA Januvia Eliquis Atorvastatin Donepezil Duloxetine Memantine Lyrica FMH: Father- dementia Mom- DM Social: Chews cigars, former smoker quit 10 years ago Social Results - Labs Result diagrams: 12/01/17 05:55 12/01/17 05:55 Abnormal lab results 11/30/17 11/30/17 11/30/17 Range/Units 12:10 18:30 20:37 RBC (4.50-5.90) mil/mm3 Hgb (13.0-17.0) gm/dL Hct (39.0-51.0) % Plt Count (150-450) th/mm3 Neut % (Auto) (16.0-70.0) % [place] % (Auto) (0.0-8.0) % [place] # (Auto) (0.0-0.9) th/mm3 Chloride (98-107) meq/L BUN (7-18) mg/dL Creatinine (0.60-1.30) mg/dL Estimated GFR (>89) mL/min POC Glucose 296 H (68-110) mg/dl Random Glucose (74-106) mg/dL AST (15-37) U/L ALT (12-78) U/L Alkaline Phosphatase 293 H (45-117) U/L CK-MB (CK-2) 4.0 H (0.5-3.6) ng/mL Troponin I 1.21 H* 1.38 H* (0.02-0.05) ng/mL B-Natriuretic Peptide (0-100) pg/mL Total Protein (6.4-8.2) g/dL Albumin (3.4-5.0) g/dL Triglycerides (42-150) mg/dL Cholesterol (120-200) mg/dL HDL Cholesterol (40.0-60.0) mg/dL 12/01/17 12/01/17 12/01/17 Range/Units 05:55 05:55 05:55 RBC 3.66 L (4.50-5.90) mil/mm3 Hgb 12.0 L (13.0-17.0) gm/dL Hct 36.0 L (39.0-51.0) % Plt Count 147 L (150-450) th/mm3 Neut % (Auto) 76.1 H (16.0-70.0) % [place] % (Auto) 11.7 H (0.0-8.0) % [place] # (Auto) 1.1 H (0.0-0.9) th/mm3 Chloride (98-107) meq/L BUN (7-18) mg/dL Creatinine (0.60-1.30) mg/dL Estimated GFR (>89) mL/min POC Glucose (68-110) mg/dl Random Glucose (74-106) mg/dL AST (15-37) U/L ALT (12-78) U/L Alkaline Phosphatase (45-117) U/L CK-MB (CK-2) (0.5-3.6) ng/mL Troponin I 1.56 H* (0.02-0.05) ng/mL B-Natriuretic Peptide 2009 H (0-100) pg/mL Total Protein (6.4-8.2) g/dL Albumin (3.4-5.0) g/dL Triglycerides 33 L (42-150) mg/dL Cholesterol 59 L (120-200) mg/dL HDL Cholesterol 37.8 L (40.0-60.0) mg/dL 12/01/17 12/01/17 Range/Units 05:55 11:23 RBC (4.50-5.90) mil/mm3 Hgb (13.0-17.0) gm/dL Hct (39.0-51.0) % Plt Count (150-450) th/mm3 Neut % (Auto) (16.0-70.0) % [place] % (Auto) (0.0-8.0) % [place] # (Auto) (0.0-0.9) th/mm3 Chloride 108 H (98-107) meq/L BUN 74 H (7-18) mg/dL Creatinine 2.49 H (0.60-1.30) mg/dL Estimated GFR 25 L (>89) mL/min POC Glucose (68-110) mg/dl Random Glucose 71 L (74-106) mg/dL AST 192 H (15-37) U/L ALT 286 H (12-78) U/L Alkaline Phosphatase 359 H (45-117) U/L CK-MB (CK-2) (0.5-3.6) ng/mL Troponin I 1.49 H* (0.02-0.05) ng/mL B-Natriuretic Peptide (0-100) pg/mL Total Protein 6.3 L (6.4-8.2) g/dL Albumin 2.7 L (3.4-5.0) g/dL Triglycerides (42-150) mg/dL Cholesterol (120-200) mg/dL HDL Cholesterol (40.0-60.0) mg/dL Short CBC 12/01/17 Range/Units 05:55 WBC 9.1 (4.0-11.0) th/mm3 Hgb 12.0 L (13.0-17.0) gm/dL Hct 36.0 L (39.0-51.0) % Plt Count 147 L (150-450) th/mm3 BMP 12/01/17 05:55 Sodium 143 Potassium 5.0 Chloride 108 H Carbon Dioxide 28.3 BUN 74 H Creatinine 2.49 H Calcium 8.7 Cardiac Enzymes 11/30/17 11/30/17 12/01/17 Range/Units 12:10 18:30 05:55 Total Creatine Kinase 202 (39-308) U/L CK-MB (CK-2) 4.0 H (0.5-3.6) ng/mL Troponin I 1.21 H* 1.38 H* 1.56 H* (0.02-0.05) ng/mL 12/01/17 Range/Units 11:23 Total Creatine Kinase (39-308) U/L CK-MB (CK-2) (0.5-3.6) ng/mL Troponin I 1.49 H* (0.02-0.05) ng/mL Liver Function 11/30/17 12/01/17 Range/Units 12:10 05:55 Total Bilirubin 0.5 0.6 (0.2-1.0) mg/dL AST 192 H (15-37) U/L ALT 286 H (12-78) U/L Alkaline Phosphatase 293 H 359 H (45-117) U/L Albumin 2.7 L (3.4-5.0) g/dL - Imaging Impressions Chest CT 11/30/17 12:53 CONCLUSION: 1. Bilateral parenchymal infiltrates and effusions, right greater than left. 2. Mediastinal adenopathy. Abdomen/Bladder Ultrasound 12/01/17 00:00 CONCLUSION: 1. Mild thinning of the renal cortex and slight increase in echogenicity this can be seen with underlying medical renal disease. 2. Small simple cyst identified in the left kidney. Physical Exam Vital signs: Vital Signs 11/30/17 15:05 11/30/17 17:00 11/30/17 18:24 Temperature Pulse Rate 78 84 75 Respiratory Rate 18 14 18 Blood Pressure 130/78 106/62 106/62 Pulse Oximetry 95 100 11/30/17 19:54 11/30/17 23:21 12/01/17 03:23 Temperature 98.2 F 97.9 F 97.8 F Pulse Rate 80 63 107 H Respiratory Rate 16 16 16 Blood Pressure 117/67 98/69 L Pulse Oximetry 97 95 90 L 12/01/17 08:00 12/01/17 12:00 Temperature 98.7 F 98.7 F Pulse Rate 60 62 Respiratory Rate 18 18 Blood Pressure 113/67 Pulse Oximetry 99 94 L Intake & Output 11/30/17 12/01/17 12/01/17 18:59 06:59 18:59 Intake Total 350 / 350 Output Total 250 / 250 Balance 100 / 100 Weight 90.718 kg 80.11 kg Intake: IV 350 / 350 Azithromycin Inj 500 MG In NS 250 / 250 Inj 250 ML @ 250 mls/hr IV.SIG ONCE ONE Rx#:[id number] Rocephin Inj 2,000 MG In NS Inj 100 / 100 100 ML @ 200 mls/hr IV.SIG ONCE ONE Rx#:[id number] Output: Urine 250 / 250 Other: # Incontinent Voids 2 Date of Last Bowel Movement 11/30/17 Narrative: GENERAL: Elderly appearing, thin male lying in bed comfortable HEAD: Normocephalic. EYES: No scleral icterus. NECK: No JVD or lymphadenopathy. CARDIOVASCULAR: Regular rate without murmurs, gallops, or rubs. RESPIRATORY: Decreased breath sounds diffusely with no diffuse right-sided crackles GASTROINTESTINAL: Abdomen soft, non-tender, nondistended. MUSCULOSKELETAL: No cyanosis. 1+ pitting edema bilaterally lower extremities extending to mid wang Neurological: Patient oriented only to self Assessment and Plan - Assessment (1) CHF (congestive heart failure) Code(s): I50.9 - Heart failure, unspecified Status: Acute Plan: Acute exacerbation of chronic congestive heart failure Patient obviously fluid overloaded on exam and BNP on admission of 1433 Cardiac troponins elevated on arrival 1.21, 1.38, 1.56, 1.49 -Unable to perform cardiac catheterization per cardiology due to acute renal insufficiency -Nitropaste has been placed -Continue Eliquis -Aspirin 81 mg daily -Metoprolol 12.5 mg p.o. twice daily Continue diuresis with Lasix IV 40 mg daily -Strict I's and O's -Daily weights -Daily fluid restrictions of 1.5 L -Occasional crackles on lung exam at bilateral bases -Lasix 40 mg daily -2D echocardiogram to evaluate ejection fraction Cardiology consulted and following, appreciate recommendations (2) Elevated troponin Code(s): R74.8 - Abnormal levels of other serum enzymes Status: Acute Plan: Cardiac troponins elevated on arrival, trending upwards to 1.56, most recent troponin I 0.49 -Cardiology following, see plan for CHF (3) Acute renal failure (ARF) Code(s): N17.9 - Acute kidney failure, unspecified Status: Acute Plan: Nephrology consulted, appreciate recommendations -Renal ultrasound pending -Avoid nephrotoxic agents as much as possible (4) Pneumonia Code(s): J18.9 - Pneumonia, unspecified organism Status: Acute Plan: Chest CT shows coarse parenchymal infiltrates bilaterally most pronounced in the right upper lobe with air bronchogram formation seen. There is associated prominent mediastinal lymph nodes. He will be treated for pneumonia Antibiotic treatment: Levaquin 750 mg p.o. daily - Received Rocephin and azithromycin 1 in the ED Supplemental oxygen as needed Monitor on telemetry Blood cultures ordered and pending (5) Elevated liver enzymes Code(s): R74.8 - Abnormal levels of other serum enzymes Status: Acute Plan: Possibly due to poor cardiac output -Hepatitis panel ordered for the a.m. -Fasting lipids for the morning -No known history of liver disease -Follow-up CMP in a.m. (6) Abnormal chest CT Code(s): R93.8 - Abnormal findings on diagnostic imaging of other specified body structures Status: Acute Plan: Bilateral parenchymal infiltrates and effusions with mediastinal adenopathy -Inflammatory versus infectious etiology to infiltrates See treatment as above for pneumonia -Lactic acid, blood cultures -Levaquin 500 mg po daily -Patient's white count within normal limits and he remains afebrile. -Continue to monitor vital signs and white count (7) Dementia Code(s): F03.90 - Unspecified dementia without behavioral disturbance Status: Acute Plan: Continue home meds (8) Diabetes Code(s): E11.9 - Type 2 diabetes mellitus without complications Status: Acute Plan: -Diabetic diet -Patient on low-dose sliding scale insulin (9) Afib Code(s): I48.91 - Unspecified atrial fibrillation Status: Acute Plan: Continue Eliquis and rate control with metoprolol Continuous telemetry (10) Hyperlipidemia Code(s): E78.5 - Hyperlipidemia, unspecified Status: Acute Plan: Continue statin (11) Nutrition, metabolism, and development symptoms Code(s): R63.8 - Other symptoms and signs concerning food and fluid intake Status: Acute Plan: Diet: Diabetic diet Fluids: None at this time DVT prophylaxis: On Eliquis (1) CHF (congestive heart failure) Qualifiers: Heart failure type: unspecified Heart failure chronicity: unspecified Qualified Code(s): I50.9 - Heart failure, unspecified (3) Acute renal failure (ARF) Qualifiers: Acute renal failure type: unspecified Qualified Code(s): N17.9 - Acute kidney failure, unspecified (4) Pneumonia Qualifiers: Pneumonia type: due to unspecified organism Laterality: unspecified laterality Lung location: unspecified part of lung Qualified Code(s): J18.9 - Pneumonia, unspecified organism
--- NOTE | 2017-12-01 14:14 | ECHRPT ---
Indication: SHORTNESS OF BREATH CONCLUSIONS The left ventricular systolic function is [id number] reduced with an estimated ejection fra ction in the range of 35-40%. Normal left ventricular size. Wall thickness is normal. There is distinct regional wall motion abnormalities. A pacemaker wire is noted. The left atrial size is upper limits of normal. There is a pacemaker wire present in the right atrial cavity. Mild thickening of the mitral valve leaflets. Moderate to severe mitral valve regurgitation. Aortic valve sclerosis is present. Mild aortic valve regurgitation. There is moderate to severe tricuspid valve regurgitation. The estimated pulmonary arterial pressure is 56 mmHg. Trivial pulmonary valve regurgitation. The inferior vena cava is dilated. There is less than 50% respiratory change in dimension of the inferior vena cava (abnormal). BP: / HR: Rhythm: MEASUREMENTS (Male / Female) Normal Values Technical Quality:Fair 2D ECHO LV Diastolic Diameter PLAX 5.3 cm 4.2 - 5.9 / 3.9 - 5.3 cm LV Systolic Diameter PLAX 4.1 cm IVS Diastolic Thickness 1.1 cm 0.6 - 1.0 / 0.6 - 0.9 cm LVPW Diastolic Thickness 1.0 cm 0.6 - 1.0 / 0.6 - 0.9 cm LV Relative Wall Thickness 0.4 RV Internal Dim ED PLAX 3.5 cm LVOT Diameter 2.0 cm LA Systolic Diameter LX 4.2 cm 3.0 - 4.0 / 2.7 - 3.8 cm LV Ejection Fraction MOD 4C 40.6 % LV Ejection Fraction 4C AL 41.5 % M-MODE Aortic Root Diameter MM 2.3 cm LA Systolic Diameter MM 4.1 cm LA Ao Ratio MM 1.8 AV Cusp Separation MM 1.6 cm DOPPLER AV Peak Velocity 106.0 cm/s AV Peak Gradient 4.5 mmHg AI Peak Velocity 290.5 cm/s AI Peak Gradient 33.8 mmHg AI Pressure Half Time 576.0 ms LVOT Peak Velocity 70.6 cm/s LVOT Peak Gradient 2.0 mmHg AV Area Cont Eq pk 2.1 cm MV Area PHT 5.1 cm Mitral E Point Velocity 116.0 cm/s Mitral A Point Velocity 64.2 cm/s Mitral E to A Ratio 1.8 TR Peak Velocity 339.0 cm/s TR Peak Gradient 46.0 mmHg Right Atrial Pressure 10.0 mmHg Pulmonary Artery Systolic Pressu 56.0 mmHg Right Ventricular Systolic Press 56.0 mmHg PV Peak Velocity 61.5 cm/s PV Peak Gradient 1.5 mmHg FINDINGS LEFT VENTRICLE The left ventricular systolic function is pkodqccj-[id number] reduced with an estimated ejection fra ction in the range of 35-40%. Normal left ventricular size. Wall thickness is normal. There is distinct regional wall motion abnormalities. RIGHT VENTRICLE A pacemaker wire is noted. LEFT ATRIUM The left atrial size is upper limits of normal. RIGHT ATRIUM There is a pacemaker wire present in the right atrial cavity. ATRIAL SEPTUM Normal atrial septal thickness without atrial level shunting by limited color doppler interrogation. AORTA The aortic root and proximal ascending aorta are normal in size on limited imaging. MITRAL VALVE Mild thickening of the mitral valve leaflets. Moderate mitral valve regurgitation. AORTIC VALVE Trileaflet aortic valve. Aortic valve sclerosis is present. Mild aortic valve regurgitation. TRICUSPID VALVE Structurally normal tricuspid valve. There is moderate to severe tricuspid valve regurgitation. The estimated pulmonary arterial pressure is 56 mmHg. PULMONARY VALVE Trivial pulmonary valve regurgitation. VESSELS The inferior vena cava is dilated. There is less than 50% respiratory change in dimension of the inferior vena cava (abnormal). PERICARDIUM No pericardial effusion. Len Gibson MD, FACC, FSCAI (Electronically Signed) Final Date:01 December 2017 14:13
[2017-12-01 19:01] LABS: Amorphous Sediment,Urine Few /hpf; Bacteria,Urine Occasional /hpf; Bilirubin,Urine Negative (Negative); Clarity,Urine Cloudy (Clear); Color,Urine Yellow (Yellw/Straw); Glucose,Urine (UA) Negative (Negative); Hyaline Casts,Urine 20 /lpf (0-3); Leukocyte Esterase,Urine Trace (Negative); Mucus,Urine Few /lpf (Occasional); Nitrite,Urine Negative (Negative); Specific Gravity,Urine 1.013 (1.002-1.035); Squamous Epithelial Cell,Urine 1 /hpf (0-5)
[2017-12-01] MEDS ORDERED: Azithromycin Inj 500 MG in Sodium Chlor 0.9% Inj 250 ML IV.SIG SCH (20:00)
[2017-12-01 20:39] LABS: Hepatitis A IgM Antibody Nonreactive (Nonreactive); Hepatitits B Surface Antigen Nonreactive (Nonreactive)
--- NOTE | 2017-12-01 22:06 | P.CONCC ---
History of Present Illness Primary Care Provider: Micah Hyatt MD Chief Complaint: Swelling of the lower extremities and SOB History of Present Illness: 87-year-old male with a history of dementia has been admitted to teaching service for an evaluation of swelling of legs and dyspnea. He reported that for the past 2 weeks he has had increasing difficulty of breathing with exertion. He is now unable to walk across a room without feeling short of breath. He has had a cough for the past 5 days nonproductive. Past 5 days he has also noticed some increased swelling of his legs bilaterally. He denies orthopnea. Today in the evening the patient was being helped back to the bed from the bedside commode with acute onset of decreased alertness and desaturation to approximately 70%. He was also noted to have cyanosis of the face per chart review. He was on room air at that time and patient was escalated from nasal cannula to nonrebreather mask at 15 L/min rate, FiO2 100%. His O2 sat increased to 92%. Son is at bedside reports that he has dementia at baseline but he reported that mental status had acutely declined during this episode. The stat x-ray obtained immediately shows worsening of right lung consolidation over the last day. The patient has been transferred to ICU for higher level of care. Review of Systems unobtainable due to mental condition PMFSH - History History Provided By: Family Member - Medical History Medical History: Medical History (Last Updated 11/30/17 @ 12:00 by YVES Casey) Atrial fibrillation Dementia Diabetes High cholesterol Pacemaker Pneumonia - Surgical History Surgical History: Surgical History (Last Updated 11/30/17 @ 12:00 by YVES Casey) History of heart artery stent - Tobacco History Second Hand Smoke Exposure: Yes Smoking Status: Former smoker - Alcohol History How Often Do You Have a Drink Containing Alcohol: 2 to 4 times a month - Substance Use History Substance History: No History of Abuse - Travel History Recent Travel in the [place] Within the Last 8 Weeks: No Recent Travel Out of the Country Within the Last 8 Weeks: No - Immunization History Tetanus Immunization: Unsure Hx Influenza Vaccine This Season: Yes Medications and Allergies Active Medications: Active Medications Al Hydroxide/Mg Hydroxide (Milk Of Kaitlin Liq) 30 ml PO Q12H PRN PRN Reason: Mild Constipation Apixaban (Eliquis) 2.5 mg PO BID [facility] Last Admin: 12/01/17 20:17 Dose: 2.5 mg Aspirin (Aspirin Chew) 81 mg PO DAILY [facility] Last Admin: 12/01/17 09:46 Dose: 81 mg Atorvastatin Calcium (Lipitor) 80 mg PO HS [facility] Last Admin: 12/01/17 20:17 Dose: 80 mg Bisacodyl (Dulcolax Supp) 10 mg RECTAL DAILY PRN PRN Reason: SEVERE CONSITIPATION Dextrose (D50w Vial) 50 ml IV.PUSH UNSCH PRN PRN Reason: PER HYPOGLYCEMIA PROTOCOL Donepezil HCl (Aricept) 10 mg PO DAILY [facility] Last Admin: 12/01/17 09:45 Dose: 10 mg Duloxetine HCl (Cymbalta) 60 mg PO DAILY [facility] Last Admin: 12/01/17 09:46 Dose: 60 mg Furosemide (Lasix Inj) 40 mg IV.PUSH DAILY [facility] Last Admin: 12/01/17 09:47 Dose: 40 mg Glucagon (Glucagon Inj) 1 mg OTHER PRN PRN PRN Reason: for Hypoglycemia Protocol Ceftriaxone Sodium 2,000 mg/ (Sodium Chloride) 100 mls @ 200 mls/hr IV.SIG Q24H [facility] Last Infusion: 12/01/17 20:05 Dose: Infused Azithromycin 500 mg/ Sodium (Chloride) 250 mls @ 250 mls/hr IV.SIG Q24H [facility] Last Admin: 12/01/17 20:18 Dose: 250 mls/hr Insulin Aspart (Novolog Insulin Correctional Sugar Inj) 0 unit SQ ACHS [facility]; Protocol Last Admin: 12/01/17 19:13 Dose: 1 unit Lactulose (Lactulose Liq) 30 ml PO DAILY PRN PRN Reason: SEVERE CONSITIPATION Memantine (Namenda) 10 mg PO BID [facility] Last Admin: 12/01/17 20:17 Dose: 10 mg Metoprolol Tartrate (Lopressor) 12.5 mg PO BID [facility] Last Admin: 12/01/17 20:16 Dose: 12.5 mg Nitroglycerin (Nitro-Bid 2% Oint) 0.5 inch TOPICAL Q8HR [facility] Last Admin: 12/01/17 16:22 Dose: Not Given Pregabalin (Lyrica) 50 mg PO TID PRN PRN Reason: PAIN SCALE 1 TO 10 Senna/Docusate Sodium (Minerva-Colace) 1 tab PO BID [facility] Last Admin: 12/01/17 20:18 Dose: 1 tab Sennosides (Senokot) 17.2 mg PO Q12H PRN PRN Reason: Moderate Constipation Allergies Allergy/AdvReac Type Severity Reaction Status Date / Time No Known Allergies Allergy Verified 11/30/17 15:30 Home Medications Medication Instructions Recorded Confirmed Type apixaban [Eliquis] 2.5 mg PO BID 11/30/17 11/30/17 History aspirin 81 mg PO DAILY 11/30/17 11/30/17 History atorvastatin 20 mg PO DAILY 11/30/17 11/30/17 History donepezil 10 mg PO DAILY 11/30/17 11/30/17 History duloxetine 60 mg PO DAILY 11/30/17 11/30/17 History memantine 10 mg PO BID 11/30/17 11/30/17 History rx-uvb-phksg acid-lutein [Centrum 1 tab PO DAILY 11/30/17 11/30/17 History Silver] pregabalin [Lyrica] 50 mg PO TID PRN 11/30/17 11/30/17 History sitagliptin [Januvia] 50 mg PO DAILY 11/30/17 11/30/17 History Physical Exam Vital signs: Vital Signs 11/30/17 23:21 12/01/17 03:23 12/01/17 08:00 Temperature 97.9 F 97.8 F 98.7 F Pulse Rate 63 107 H 60 Respiratory Rate 18 Blood Pressure 98/69 L Pulse Oximetry 95 90 L 99 12/01/17 12:00 12/01/17 16:00 12/01/17 19:55 Temperature 98.7 F 98.8 F 98.1 F Pulse Rate 62 63 65 Respiratory Rate 18 18 Blood Pressure 113/67 94/70 L 103/64 Pulse Oximetry 94 L 94 L 99 12/01/17 20:37 12/01/17 20:55 Temperature Pulse Rate Respiratory Rate Blood Pressure Pulse Oximetry 98 92 L Intake & Output 12/01/17 12/01/17 12/02/17 06:59 18:59 06:59 Intake Total 100 / 100 Balance 100 / 100 Weight 80.11 kg Intake: IV 100 / 100 Rocephin Inj 2,000 MG In NS Inj 100 / 100 100 ML @ 200 mls/hr IV.SIG Q24H [facility] Rx#:[id number] Other: # Voids 2 Date of Last Bowel Movement 11/30/17 12/01/17 # Bowel Movements 1 - Constitutional moderate distress - Routine HEENT Exam Head: Present: normocephalic, atraumatic Eye: Present: PERRL ENT: Present: mucous membranes moist - Routine Neck Exam Present: supple, full ROM. Absent: JVD, carotid bruit - Routine Respiratory Exam Present: accessory muscle use, rhonchi, crackles. Absent: stridor, wheezes - Routine Cardiovascular Exam Present: RRR, S1, S2, irregularly irregular - Routine Abdominal Exam Present: soft, normoactive bowel sounds. Absent: tenderness, distended - Routine Extremities Exam Present: edema. Absent: cyanosis, clubbing - Routine Skin Exam Present: intact. Absent: cyanosis, erythema - Routine Neurological Exam Present: alert Assessment and Plan - Assessment and Plan Plan: CHF -Acute exacerbation of chronic congestive heart failure -Lasix 1001 -troponins elevated on arrival -not a candidate for cardiac cath due to worsening kidney failure -Nitropaste -Continue Eliquis -Aspirin 81 mg daily -Metoprolol 12.5 mg p.o. twice daily -2D echocardiogram still pending -Cardiology consultation appreciated Afib -Rate controlled with metoprolol -Telemetry -Eliquis anticoagulation Hyperlipidemia -Continue statin Pneumonia -Worsening infiltrates in the extremity -Worsening oxygenation demand -Escalate antibiotics coverage and follow-up cultures -Supplemental oxygen as needed Acute on chronic renal failure -Renal ultrasound without signs of obstruction -Avoid nephrotoxic agents -Management per nephrology Dementia -Continue home meds -Supportive care Diabetes mellitus type II -Diabetic diet -low-dose sliding scale insulin Critical Care: The total critical care time was 35 minutes. Time to perform other separately billable procedures was not included in the critical care time.
[2017-12-01 22:29] LABS: Creatine Kinase 225 U/L (39-308)
--- NOTE | 2017-12-01 22:39 | XR ---
EXAM DATE: 12/01/2017 9:37 PM EDT AGE/SEX: 87 years / Male INDICATIONS: Short of breath, halicat. CLINICAL DATA: This is the patient's subsequent encounter. Patient reports that signs and symptoms h ave been present for 1 day and indicates a pain score of 0/10. MEDICAL/SURGICAL HISTORY: . Diabetes. Pacemaker. [place] [facility] [place]. . FINDINGS: Heart size enlarged. Pacer leads overlie right atrium and right ventricle. Slight increase in lung co nsolidation over the last day. Small bilateral pleural effusions. No pneumothorax. CONCLUSION: Slight worsening of right lung consolidation over the last day. Pacer leads overlie right atrium and right ventricle. Small effusions. Electronically signed by: Shay Ding MD 12/01/2017 10:38 PM EDT
[2017-12-01 22:44] LABS: Troponin I 1.07 ng/mL (0.02-0.05)
[2017-12-01] MEDS ORDERED: Morphine Inj 4 MG/ML Vial IV.PUSH ONE (22:53)
[2017-12-01 22:56] LABS: Creatine Kinase MB 5.2 ng/mL (0.5-3.6)
--- NOTE | 2017-12-01 22:58 | P.PNADD ---
Addendum to Inpatient Note Reason for Addendum: Additional Documentation Additional information: KAJALT NOTE Subjective: Patient is an 87-year-old male with a significant CAD history and pacemaker admitted on 11/30 for workup of shortness of breath. Concern on admission was for acute onset CHF, pneumonia, acute renal failure, and troponin anemia for which he was admitted for further workup. Overnight team was called regarding change in patient's status. Per report, patient was being helped back to the bed from the bedside commode with acute onset of decreased alertness and desaturation to approximately 70%. He was also noted to have cyanosis noted on the face. He was on room air at that time and patient was escalated from nasal cannula to nonrebreather mask at 15 L/min rate, FiO2 100%. His O2 sat increased to 92%. Son is at bedside during has a cat and reports that he has dementia at baseline but he reported that mental status had acutely declined. The patient on report endorsed nonspecific pain but stated he felt better regarding breathing. Objective: On exam, patient knows his name but is difficult to orient to other lines of questioning. He does discuss a few things relevant to his remote life prior son (including of course he had previously) but has not responded any other orientation questions appropriately. Skin is cool and dry with no obvious ecchymoses. Cardiac exam is overall unremarkable with no obvious murmurs noted Lung exam is notable for decreased air movement however no crackles or wheezes noted. He does not look obviously edematous in the extremities Neuro exam: no focal neurologic deficits Pulses are intact in the radial and DP areas bilaterally Vital signs reviewed and notable for normal blood pressure most recently 125/ 92. Respiratory rate increased approximately 30, pulse rate 60s, temperature within normal limits. Repeat O2 sat is 92% on nonrebreather at 15 L rate Assessment/Plan: 87-year-old male admitted with acute CHF exacerbation, suspect cardiac event vs PNA as trigger. EKG on admission showing paced rhythm. SOB: differential includes worsening CHF, ACS, PNA. AMS possibly related to hypoxia but other etiologies such as CVA or ACS cannot be excluded. Repeat CXR showing worsening right-sided infiltrate vs fluid Repeat labs pending to workup kidney function and cardiac function 2D echo showing EF 35-40%. TUTU noted on admission, nephrology following. Creatinine most recently 2.49 with GFR 27. BNP 2009 CBC reviewed from this morning showing stable H&H /36, platelets 147, no leukocytosis. Troponin levels have been elevated 1.21, 1.3, 1.56, 1.49 with repeat pending at this time. Cardiology following, to review echo and follow renal function for possible cath. Patient does not currently have capacity to make medical decisions given altered mental status and baseline dementia. Per son and , patient's healthcare surrogate is his though 2 sons are also at bedside. All 3 family members discuss patient's no code DNR status and desire for no aggressive interventions. Given patient has a complicated history including acute kidney injury, possible ACS, and CHF, will consult traveler changer for assistance in managing symptoms. Per family, aggressive workup and management of underlying disease would not be desired at this time. We specifically discussed CT head given AMS Patient was transferred to ICU given need for nonrebreather mask. He does not appear to be a candidate for BiPAP given her mental status will continue to monitor this. He is no code DNR. Initially we considered additional dose of Lasix but it was reported the patient has not had significant urine output since the initial dose of Lasix. Patient currently endorses pain but does not state where. Will give 2mg IV morphine dose and monitor closely. I expect this will reduce air hunger. Family at bedside specifically request morphine for patient.
[2017-12-02 00:53] VITALS: PULSE 60
[2017-12-02] MEDS ORDERED: Vancomycin Consult Pharmacy 1 EACH OTHER SCH (02:00)
[2017-12-02] MEDS ORDERED: Vancomycin Inj 1,500 MG in Sodium Chlor 0.9% Inj 500 ML IV.SIG ONE (03:00)
[2017-12-02] MEDS ORDERED: Chlorhexidine Gluconate 2% 1 Pack (2 Cloths) TOPICAL SCH (04:00)
[2017-12-02] MEDS ORDERED: Chlorhexidine Gluconate 2% 1 Pack (2 Cloths) TOPICAL PRN (04:00)
--- NOTE | 2017-12-02 08:40 | ECG ---
Date Performed: 12/01/2017 Time Performed: 20:46:12 PTAGE: 87 years EKG: ELECTRONIC VENTRICULAR PACEMAKER ABNORMAL RHYTHM ECG NO PREVIOUS TRACING DOCTOR: Jd Hernadez Interpretating Date/Time 12/02/2017 08:39:17
[2017-12-02] MEDS ORDERED: Azithromycin 250 MG Tablet PO SCH (09:00)
--- NOTE | 2017-12-02 09:16 | P.PNCC ---
Subjective Subjective Remarks/Hospital Course: 87-year-old male with a history of dementia has been admitted to teaching service for an evaluation of swelling of legs and dyspnea. He reported that for the past 2 weeks he has had increasing difficulty of breathing with exertion. He is now unable to walk across a room without feeling short of breath. He has had a cough for the past 5 days nonproductive. Past 5 days he has also noticed some increased swelling of his legs bilaterally. He denies orthopnea. Today in the evening the patient was being helped back to the bed from the bedside commode with acute onset of decreased alertness and desaturation to approximately 70%. He was also noted to have cyanosis of the face per chart review. He was on room air at that time and patient was escalated from nasal cannula to nonrebreather mask at 15 L/min rate, FiO2 100%. His O2 sat increased to 92%. Son is at bedside reports that he has dementia at baseline but he reported that mental status had acutely declined during this episode. The stat x-ray obtained immediately shows worsening of right lung consolidation over the last day. The patient has been transferred to ICU for higher level of care. 12/02 Patient is lying in bed in NAD. Afebrile. On no drips. Objective Vital Signs / I&O: Vital Signs 12/01/17 12:00 12/01/17 16:00 12/01/17 19:55 Temperature 98.7 F 98.8 F 98.1 F Pulse Rate 62 63 65 Respiratory Rate 18 16 18 Blood Pressure 113/67 94/70 L 103/64 Pulse Oximetry 94 L 94 L 99 12/01/17 20:37 12/01/17 20:55 12/02/17 00:00 Temperature 97.9 F Pulse Rate 60 Respiratory Rate 41 H Blood Pressure 115/78 Pulse Oximetry 98 92 L 92 L 12/02/17 04:00 12/02/17 08:08 Temperature 97.7 F Pulse Rate 60 Respiratory Rate 29 H Blood Pressure 105/56 L Pulse Oximetry 97 100 Intake & Output 12/01/17 12/02/17 12/02/17 18:59 06:59 18:59 Intake Total 570 / 570 Output Total 0 / 0 Balance 570 / 570 Weight 80.11 kg 92.3 kg Intake: IV 450 / 450 Azithromycin Inj 500 MG In NS 250 / 250 Inj 250 ML @ 250 mls/hr IV.SIG Q24H VERONICA Rx#:[id number] Maxipime Inj 2,000 MG In NS Inj 100 / 100 100 ML @ 200 mls/hr IV.SIG Q12H VERONICA Rx#:[id number] Rocephin Inj 2,000 MG In NS Inj 100 / 100 100 ML @ 200 mls/hr IV.SIG Q24H VERONICA Rx#:[id number] Oral 120 / 120 Output: Urine 0 / 0 Other: # Voids 2 Date of Last Bowel Movement 11/30/17 12/01/17 # Bowel Movements 0 Result Diagrams: 12/02/17 11:07 12/02/17 11:07 Other Results: Laboratory Results - last 12 hr 12/01/17 12/01/17 20:30 21:41 Total Creatine Kinase 225 CK-MB (CK-2) 5.2 H Troponin I 1.07 H* Nasal Screen MRSA (PCR) Not detected Imaging: Chest CT 11/30/17 12:53 CONCLUSION: 1. Bilateral parenchymal infiltrates and effusions, right greater than left. 2. Mediastinal adenopathy. Abdomen/Bladder Ultrasound 12/01/17 00:00 CONCLUSION: 1. Mild thinning of the renal cortex and slight increase in echogenicity this can be seen with underlying medical renal disease. 2. Small simple cyst identified in the left kidney. Chest X-Ray 12/01/17 21:13 CONCLUSION: Slight worsening of right lung consolidation over the last day. Pacer leads overlie right atrium and right ventricle. Small effusions. Objective Remarks: GENERAL: Patient is 87 yo lying in bed in NAD SKIN: Warm and dry. HEAD: Normocephalic. EYES: No scleral icterus. No injection or drainage. NECK: Supple, trachea midline. No JVD or lymphadenopathy. CARDIOVASCULAR: Regular rate and rhythm without murmurs, gallops, or rubs. RESPIRATORY: Breath sounds equal bilaterally. Few coarse BS GASTROINTESTINAL: Abdomen soft, non-tender, nondistended. MUSCULOSKELETAL: No cyanosis, or edema. Neuro: Awake. Assessment and Plan - Assessment and Plan Plan: 1)Resp Insuff 2)CHF decomp 30 Afib- rate controlled 4)Acute on CKD 5)Dementia 6)Elevated trop 7)Cardiomyopathy with EF 35-40% 8) Pleural effusions R>L 9) Elevated LFT's 10)DM Plan Neuro: Monitor neuro status. Avoid any sedatives On Namenda and Lyrica Pulm: Continue with oxygen keep sats >92% Bronchodilators CV: Monitor HR and BP keep MAP>65mmHg Monitor trop. Echo showed EF 35-40%, mod- severe MR/TR, PAP 56mmHg Cards is following. On Lopressor 12.5 mg BID, ASA 81mg daily , Eliquis, Lasix 40mg daily, Lipitor : Monitor renal function, I/O's, avoid nephrotoxins. Renal ultrasound without signs of obstruction Renal is following- Dr. Prajapati. BMP today showed worsening renal function and hyperkalemia, K: 6.3 with Cr : 4.17 from 2.49 Will hold Lasix, treat hyperkalemia with IV insulin, D50, Bicarb and Kayexalate. GI: On PO diet. Monitor LFT's, check US liver. Hepatitis profile negative, Endo: -low-dose sliding scale insulin Heme: Monitor CBC ID: Continue with abx ( cefepime, Zithromax, Vanco)monitor for signs of infections ( fever, WBC) Follow up on BC DVT prophylaxis- On Eliquis 2.5mg BID GI prophylaxis- Protonix 40mg daily Consult palliative care to asses with goals of care Follow up on labs Level 3
[2017-12-02] MEDS: Duloxetine 60 MG DR Capsule PO SCH (09:26)
[2017-12-02] MEDS: Senna/Docusate Sodium 8.6/50 MG Tablet PO SCH (09:26)
[2017-12-02 09:30] LABS: Baso % (Auto) 0.2 % (0.0-2.0); Eos % (Auto) 0.2 % (0.0-4.0); Hematocrit 34.7 % (39.0-51.0); Hemoglobin 11.1 gm/dL (13.0-17.0); Lymph # (Auto) 0.7 th/mm3 (1.0-4.8); Lymph % (Auto) 5.1 % (9.0-44.0); Mean Corpuscular HGB Conc 31.8 % (32.0-36.0); Mean Corpuscular Hemoglobin 31.9 pg (27.0-34.0); Mean Corpuscular Volume 100.1 fL (80.0-100.0); Mean Platelet Volume 10.6 fL (7.0-11.0); Mono # (Auto) 1.4 th/mm3 (0.0-0.9); Mono % (Auto) 9.7 % (0.0-8.0); Neut # (Auto) 12.1 th/mm3 (1.8-7.7); Neut % (Auto) 84.8 % (16.0-70.0); Platelet Count 117 th/mm3 (150-450); Red Blood Count 3.47 mil/mm3 (4.50-5.90); Red Cell Distribution Width 14.6 % (11.6-17.2); White Blood Count 14.3 th/mm3 (4.0-11.0)
[2017-12-02] MEDS ORDERED: Pantoprazole Inj 40 MG Vial IV.PUSH SCH (10:00)
[2017-12-02 10:16] LABS: Albumin 2.6 g/dL (3.4-5.0); Calcium 8.4 mg/dL (8.5-10.1); Carbon Dioxide 23.5 meq/L (21.0-32.0); Phosphorus 8.6 mg/dL (2.5-4.9); Potassium 6.7 meq/L (3.5-5.1)
--- NOTE | 2017-12-02 11:06 | P.CONPAL ---
Consult Service: Palliative Care Requesting Physician: Bonnie Taveras Reason for Consult: a. To assist with evaluation and management of symptoms including: b. To assist medical decision maker(s) with: better understanding of current medical conditions; weighing benefits/burdens of medical treatment options; making medical treatment decisions. Primary Care Provider: Micah Hyatt MD [facility] - History History Provided By: Family Member - Medical History Medical History: Medical History (Last Updated 11/30/17 @ 12:00 by YVES Casey) Atrial fibrillation Dementia Diabetes High cholesterol Pacemaker Pneumonia - Surgical History Surgical History: Surgical History (Last Updated 11/30/17 @ 12:00 by YVES Casey) History of heart artery stent - Tobacco History Second Hand Smoke Exposure: Yes Smoking Status: Former smoker - Alcohol History How Often Do You Have a Drink Containing Alcohol: 2 to 4 times a month - Substance Use History Substance History: No History of Abuse - Travel History Recent Travel in the [place] Within the Last 8 Weeks: No Recent Travel Out of the Country Within the Last 8 Weeks: No - Immunization History Tetanus Immunization: Unsure Hx Influenza Vaccine This Season: Yes Medications and Allergies Active Medications: Active Medications Al Hydroxide/Mg Hydroxide (Milk Of Kaitlin Torres) 30 ml PO Q12H PRN PRN Reason: Mild Constipation Albuterol (Duoneb Neb (Kerry)) 1 ampul NEB Q4HR NEB KERRY Albuterol (Duoneb Neb (Prn)) 1 ampul NEB Q2HR NEB PRN PRN Reason: DYSPNEA Apixaban (Eliquis) 2.5 mg PO BID [facility] Last Admin: 12/02/17 09:26 Dose: 2.5 mg Aspirin (Aspirin Chew) 81 mg PO DAILY [facility] Last Admin: 12/02/17 09:26 Dose: 81 mg Atorvastatin Calcium (Lipitor) 80 mg PO HS [facility] Last Admin: 12/01/17 20:17 Dose: 80 mg Azithromycin (Zithromax) 500 mg PO DAILY [facility] Last Admin: 12/02/17 09:26 Dose: 500 mg Bisacodyl (Dulcolax Supp) 10 mg RECTAL DAILY PRN PRN Reason: SEVERE CONSITIPATION Chlorhexidine Gluconate (Chlorhexidine 2% Cloth) 3 pack TOPICAL DAILY@0400 [facility] Stop: 12/07/17 03:59 Last Admin: 12/02/17 05:14 Dose: 3 pack Chlorhexidine Gluconate (Chlorhexidine 2% Cloth) 3 pack TOPICAL DAILY@0400 PRN PRN Reason: Extra cloth needed Stop: 12/07/17 03:59 Dextrose (D50w Vial) 50 ml IV.PUSH UNSCH PRN PRN Reason: PER HYPOGLYCEMIA PROTOCOL Donepezil HCl (Aricept) 10 mg PO DAILY [facility] Last Admin: 12/02/17 09:25 Dose: 10 mg Duloxetine HCl (Cymbalta) 60 mg PO DAILY [facility] Last Admin: 12/02/17 09:26 Dose: 60 mg Furosemide (Lasix Inj) 40 mg IV.PUSH DAILY [facility] Last Admin: 12/01/17 09:47 Dose: 40 mg Glucagon (Glucagon Inj) 1 mg OTHER PRN PRN PRN Reason: for Hypoglycemia Protocol Pharmacy Profile Note (Vancomycin Consult Pharmacy) 0 mls @ 0 mls/hr OTHER UNSCH [facility] Cefepime HCl 2,000 mg/ Sodium (Chloride) 100 mls @ 200 mls/hr IV.SIG Q24H [facility] Insulin Aspart (Novolog Insulin Correctional Sugar Inj) 0 unit SQ ACHS [facility]; Protocol Last Admin: 12/01/17 23:42 Dose: Not Given Lactulose (Lactulose Liq) 30 ml PO DAILY PRN PRN Reason: SEVERE CONSITIPATION Memantine (Namenda) 10 mg PO BID [facility] Last Admin: 12/02/17 09:26 Dose: 10 mg Metoprolol Tartrate (Lopressor) 12.5 mg PO BID [facility] Last Admin: 12/01/17 20:16 Dose: 12.5 mg Miscellaneous Information ([facility] Ordered Lab Info) 0 each OTHER ONCE [facility] Stop: 12/03/17 18:00 Nitroglycerin (Nitro-Bid 2% Oint) 0.5 inch TOPICAL Q8HR [facility] Last Admin: 12/02/17 05:14 Dose: Not Given Pantoprazole Sodium (Protonix Inj) 40 mg IV.PUSH Q24H [facility] Last Admin: 12/02/17 09:36 Dose: 40 mg Pregabalin (Lyrica) 50 mg PO TID PRN PRN Reason: PAIN SCALE 1 TO 10 Senna/Docusate Sodium (Minerva-Colace) 1 tab PO BID [facility] Last Admin: 12/02/17 09:26 Dose: 1 tab Sennosides (Senokot) 17.2 mg PO Q12H PRN PRN Reason: Moderate Constipation Allergies Allergy/AdvReac Type Severity Reaction Status Date / Time No Known Allergies Allergy Verified 11/30/17 15:30 Home Medications Medication Instructions Recorded Confirmed Type apixaban [Eliquis] 2.5 mg PO BID 11/30/17 11/30/17 History aspirin 81 mg PO DAILY 11/30/17 11/30/17 History atorvastatin 20 mg PO DAILY 11/30/17 11/30/17 History donepezil 10 mg PO DAILY 11/30/17 11/30/17 History duloxetine 60 mg PO DAILY 11/30/17 11/30/17 History memantine 10 mg PO BID 11/30/17 11/30/17 History [id number] acid-lutein [Centrum 1 tab PO DAILY 11/30/17 11/30/17 History Silver] pregabalin [Lyrica] 50 mg PO TID PRN 11/30/17 11/30/17 History sitagliptin [Januvia] 50 mg PO DAILY 11/30/17 11/30/17 History Physical Exam Vital Signs: Vital Signs - 24 hr 12/01/17 12:00 12/01/17 16:00 12/01/17 19:55 Temperature 98.7 F 98.8 F 98.1 F Pulse Rate 62 63 65 Respiratory Rate 18 16 18 Blood Pressure 113/67 94/70 L 103/64 Pulse Oximetry 94 L 94 L 99 12/01/17 20:37 12/01/17 20:55 12/02/17 00:00 Temperature 97.9 F Pulse Rate 60 Respiratory Rate 41 H Blood Pressure 115/78 Pulse Oximetry 98 92 L 92 L 12/02/17 04:00 12/02/17 08:08 Temperature 97.7 F Pulse Rate 60 Respiratory Rate 29 H Blood Pressure 105/56 L Pulse Oximetry 97 100 I&O: Intake & Output 11/30/17 12/01/17 12/02/17 12/03/17 06:59 06:59 06:59 06:59 Intake Total 350 / 350 570 / 570 Output Total 250 / 250 0 / 0 Balance 100 / 100 570 / 570 Weight 90.718 kg 92.3 kg Physical Exam: CONSTITUTIONAL/GENERAL: This is an adequately nourished patient, in no apparent distress. TUBES/LINES/DRAINS: SKIN: No jaundice, rashes, or lesions. Ecchymoses on upper extremities. No wounds seen anteriorly. Skin temperature appropriate. Not diaphoretic. HEAD: Atraumatic. Normocephalic. EYES: Pupils equal and round and reactive. Extraocular motions intact. No scleral icterus. No injection or drainage. Fundi not examined. ENT: Hearing grossly normal. Nose without bleeding or purulent drainage. Throat without visible erythema, exudates, masses, or lesions. NECK: Trachea midline. Supple, nontender. No palpable thyroid enlargement or nodularity. CARDIOVASCULAR: Regular rate and rhythm without murmurs, gallops, or rubs. No JVD. Peripheral pulses symmetric. RESPIRATORY/CHEST: Symmetric, unlabored respirations. Clear to auscultation. Breath sounds equal bilaterally. No wheezes, rales, or rhonchi. GASTROINTESTINAL: Abdomen soft, non-tender, nondistended. No hepato-splenomegaly , or palpable masses. No guarding. Bowel sounds present. GENITOURINARY: Without palpable bladder distension. Alejandro catheter in place. MUSCULOSKELETAL: Extremities without clubbing, cyanosis, or edema. No joint tenderness or effusion noted. No calf tenderness. No mottling or clubbing. LYMPHATICS: No palpable cervical or supraclavicular adenopathy. NEUROLOGICAL: Awake and alert. Motor and sensory grossly within normal limits. Follows commands. Cognitively sharp. Moves all extremities. PSYCHIATRIC: No obvious anxiety/depression. no apparent hallucinations or other psychotic thought process. Diagnostic Tests Laboratory: Laboratory Results - last 72 hr 11/30/17 11/30/17 11/30/17 12:10 12:10 12:10 WBC 7.9 RBC 3.58 L Hgb 11.9 L Hct 35.3 L MCV 98.6 MCH 33.3 MCHC 33.7 RDW 13.9 Plt Count 148 L MPV 9.7 Neut % (Auto) 71.1 H Lymph % (Auto) 14.0 Gregory % (Auto) 13.5 H Eos % (Auto) 1.2 Baso % (Auto) 0.2 Neut # (Auto) 5.6 Lymph # (Auto) 1.1 Gregory # (Auto) 1.1 H Eos # (Auto) 0.1 Baso # (Auto) 0.0 WBC Differential . Differential Comment Auto diff final PT 14.2 H INR 1.4 Sodium 139 Potassium 4.7 Chloride 103 Carbon Dioxide 27.0 Anion Gap 9 BUN 68 H Creatinine 2.32 H Estimated GFR 27 L POC Glucose Random Glucose 160 H Calcium 8.7 Phosphorus Magnesium 2.5 Total Bilirubin 0.5 AST 117 H ALT 266 H Alkaline Phosphatase 293 H Total Creatine Kinase 202 CK-MB (CK-2) 4.0 H Troponin I 1.21 H* B-Natriuretic Peptide Total Protein 6.7 Albumin 2.7 L Triglycerides Cholesterol LDL Cholesterol, Calc HDL Cholesterol Cholesterol/HDL Ratio Urine Color Urine Clarity Urine pH Ur Specific [place] Urine Protein Urine Glucose (UA) Urine Ketones Urine Occult Blood Urine Nitrate Urine Bilirubin Urine Urobilinogen Ur Leukocyte Esterase Urine RBC Urine WBC Ur Squamous Epith Cells Amorphous Sediment Urine Bacteria Hyaline Casts Urine Mucus Micro UA Comment Urine Culture Comments Urine Osmolality Ur Random Creatinine Nasal Screen MRSA (PCR) Hepatitis A IgM Ab Hep Bs Antigen Hep B Core IgM Ab Hep C IgG Ab 11/30/17 11/30/17 11/30/17 12:10 18:30 20:37 WBC RBC Hgb Hct MCV MCH MCHC RDW Plt Count MPV Neut % (Auto) Lymph % (Auto) Gregory % (Auto) Eos % (Auto) Baso % (Auto) Neut # (Auto) Lymph # (Auto) Gregory # (Auto) Eos # (Auto) Baso # (Auto) WBC Differential Differential Comment PT INR Sodium Potassium Chloride Carbon Dioxide Anion Gap BUN Creatinine Estimated GFR POC Glucose 296 H Random Glucose Calcium Phosphorus Magnesium Total Bilirubin AST ALT Alkaline Phosphatase Total Creatine Kinase CK-MB (CK-2) Troponin I 1.38 H* B-Natriuretic Peptide 1433 H Total Protein Albumin Triglycerides Cholesterol LDL Cholesterol, Calc HDL Cholesterol Cholesterol/HDL Ratio Urine Color Urine Clarity Urine pH Ur Specific [place] Urine Protein Urine Glucose (UA) Urine Ketones Urine Occult Blood Urine Nitrate Urine Bilirubin Urine Urobilinogen Ur Leukocyte Esterase Urine RBC Urine WBC Ur Squamous Epith Cells Amorphous Sediment Urine Bacteria Hyaline Casts Urine Mucus Micro UA Comment Urine Culture Comments Urine Osmolality Ur Random Creatinine Nasal Screen MRSA (PCR) Hepatitis A IgM Ab Hep Bs Antigen Hep B Core IgM Ab Hep C IgG Ab 12/01/17 12/01/17 12/01/17 05:55 05:55 05:55 WBC 9.1 RBC 3.66 L Hgb 12.0 L Hct 36.0 L MCV 98.3 MCH 32.7 MCHC 33.3 RDW 14.1 Plt Count 147 L MPV 10.2 Neut % (Auto) 76.1 H Lymph % (Auto) 11.5 Gregory % (Auto) 11.7 H Eos % (Auto) 0.5 Baso % (Auto) 0.2 Neut # (Auto) 6.9 Lymph # (Auto) 1.0 Gregory # (Auto) 1.1 H Eos # (Auto) 0.0 Baso # (Auto) 0.0 WBC Differential . Differential Comment Auto diff final PT INR Sodium Potassium Chloride Carbon Dioxide Anion Gap BUN Creatinine Estimated GFR POC Glucose Random Glucose Calcium Phosphorus Magnesium Total Bilirubin AST ALT Alkaline Phosphatase Total Creatine Kinase CK-MB (CK-2) Troponin I 1.56 H* B-Natriuretic Peptide 2009 H Total Protein Albumin Triglycerides 33 L Cholesterol 59 L LDL Cholesterol, Calc 15 HDL Cholesterol 37.8 L Cholesterol/HDL Ratio 1.56 Urine Color Urine Clarity Urine pH Ur Specific [place] Urine Protein Urine Glucose (UA) Urine Ketones Urine Occult Blood Urine Nitrate Urine Bilirubin Urine Urobilinogen Ur Leukocyte Esterase Urine RBC Urine WBC Ur Squamous Epith Cells Amorphous Sediment Urine Bacteria Hyaline Casts Urine Mucus Micro UA Comment Urine Culture Comments Urine Osmolality Ur Random Creatinine Nasal Screen MRSA (PCR) Hepatitis A IgM Ab Hep Bs Antigen Hep B Core IgM Ab Hep C IgG Ab 12/01/17 12/01/17 12/01/17 05:55 05:55 09:17 WBC RBC Hgb Hct MCV MCH MCHC RDW Plt Count MPV Neut % (Auto) Lymph % (Auto) Gregory % (Auto) Eos % (Auto) Baso % (Auto) Neut # (Auto) Lymph # (Auto) Gregory # (Auto) Eos # (Auto) Baso # (Auto) WBC Differential Differential Comment PT INR Sodium 143 Potassium 5.0 Chloride 108 H Carbon Dioxide 28.3 Anion Gap 7 BUN 74 H Creatinine 2.49 H Estimated GFR 25 L POC Glucose 75 Random Glucose 71 L Calcium 8.7 Phosphorus Magnesium Total Bilirubin 0.6 AST 192 H ALT 286 H Alkaline Phosphatase 359 H Total Creatine Kinase CK-MB (CK-2) Troponin I B-Natriuretic Peptide Total Protein 6.3 L Albumin 2.7 L Triglycerides Cholesterol LDL Cholesterol, Calc HDL Cholesterol Cholesterol/HDL Ratio Urine Color Urine Clarity Urine pH Ur Specific [place] Urine Protein Urine Glucose (UA) Urine Ketones Urine Occult Blood Urine Nitrate Urine Bilirubin Urine Urobilinogen Ur Leukocyte Esterase Urine RBC Urine WBC Ur Squamous Epith Cells Amorphous Sediment Urine Bacteria Hyaline Casts Urine Mucus Micro UA Comment Urine Culture Comments Urine Osmolality Ur Random Creatinine Nasal Screen MRSA (PCR) Hepatitis A IgM Ab Nonreactive Hep Bs Antigen Nonreactive Hep B Core IgM Ab Nonreactive Hep C IgG Ab Nonreactive 12/01/17 12/01/17 12/01/17 11:23 13:28 18:30 WBC RBC Hgb Hct MCV MCH MCHC RDW Plt Count MPV Neut % (Auto) Lymph % (Auto) Gregory % (Auto) Eos % (Auto) Baso % (Auto) Neut # (Auto) Lymph # (Auto) Gregory # (Auto) Eos # (Auto) Baso # (Auto) WBC Differential Differential Comment PT INR Sodium Potassium Chloride Carbon Dioxide Anion Gap BUN Creatinine Estimated GFR POC Glucose 111 H Random Glucose Calcium Phosphorus Magnesium Total Bilirubin AST ALT Alkaline Phosphatase Total Creatine Kinase CK-MB (CK-2) Troponin I 1.49 H* B-Natriuretic Peptide Total Protein Albumin Triglycerides Cholesterol LDL Cholesterol, Calc HDL Cholesterol Cholesterol/HDL Ratio Urine Color Urine Clarity Urine pH Ur Specific [place] Urine Protein Urine Glucose (UA) Urine Ketones Urine Occult Blood Urine Nitrate Urine Bilirubin Urine Urobilinogen Ur Leukocyte Esterase Urine RBC Urine WBC Ur Squamous Epith Cells Amorphous Sediment Urine Bacteria Hyaline Casts Urine Mucus Micro UA Comment Urine Culture Comments Urine Osmolality Ur Random Creatinine 137 Nasal Screen MRSA (PCR) Hepatitis A IgM Ab Hep Bs Antigen Hep B Core IgM Ab Hep C IgG Ab 12/01/17 12/01/17 12/01/17 18:30 18:30 18:54 WBC RBC Hgb Hct MCV MCH MCHC RDW Plt Count MPV Neut % (Auto) Lymph % (Auto) Gregory % (Auto) Eos % (Auto) Baso % (Auto) Neut # (Auto) Lymph # (Auto) Gregory # (Auto) Eos # (Auto) Baso # (Auto) WBC Differential Differential Comment PT INR Sodium Potassium Chloride Carbon Dioxide Anion Gap BUN Creatinine Estimated GFR POC Glucose 180 H Random Glucose Calcium Phosphorus Magnesium Total Bilirubin AST ALT Alkaline Phosphatase Total Creatine Kinase CK-MB (CK-2) Troponin I B-Natriuretic Peptide Total Protein Albumin Triglycerides Cholesterol LDL Cholesterol, Calc HDL Cholesterol Cholesterol/HDL Ratio Urine Color Yellow Urine Clarity Cloudy H Urine pH 5.0 Ur Specific [place] 1.013 Urine Protein 30 H Urine Glucose (UA) Negative Urine Ketones Negative Urine Occult Blood Negative Urine Nitrate Negative Urine Bilirubin Negative Urine Urobilinogen Less than 2 Ur Leukocyte Esterase Trace H Urine RBC 1 Urine WBC 4 Ur Squamous Epith Cells 1 Amorphous Sediment Few H Urine Bacteria Occasional H Hyaline Casts 20 Urine Mucus Few H Micro UA Comment Culture not ind Urine Culture Comments Culture not ind Urine Osmolality 429 Ur Random Creatinine Nasal Screen MRSA (PCR) Hepatitis A IgM Ab Hep Bs Antigen Hep B Core IgM Ab Hep C IgG Ab 12/01/17 12/01/17 12/01/17 20:30 20:37 21:41 WBC RBC Hgb Hct MCV MCH MCHC RDW Plt Count MPV Neut % (Auto) Lymph % (Auto) Gregory % (Auto) Eos % (Auto) Baso % (Auto) Neut # (Auto) Lymph # (Auto) Gregory # (Auto) Eos # (Auto) Baso # (Auto) WBC Differential Differential Comment PT INR Sodium Potassium Chloride Carbon Dioxide Anion Gap BUN Creatinine Estimated GFR POC Glucose 171 H Random Glucose Calcium Phosphorus Magnesium Total Bilirubin AST ALT Alkaline Phosphatase Total Creatine Kinase 225 CK-MB (CK-2) 5.2 H Troponin I 1.07 H* B-Natriuretic Peptide Total Protein Albumin Triglycerides Cholesterol LDL Cholesterol, Calc HDL Cholesterol Cholesterol/HDL Ratio Urine Color Urine Clarity Urine pH Ur Specific [place] Urine Protein Urine Glucose (UA) Urine Ketones Urine Occult Blood Urine Nitrate Urine Bilirubin Urine Urobilinogen Ur Leukocyte Esterase Urine RBC Urine WBC Ur Squamous Epith Cells Amorphous Sediment Urine Bacteria Hyaline Casts Urine Mucus Micro UA Comment Urine Culture Comments Urine Osmolality Ur Random Creatinine Nasal Screen MRSA (PCR) Not detected Hepatitis A IgM Ab Hep Bs Antigen Hep B Core IgM Ab Hep C IgG Ab 12/02/17 12/02/17 12/02/17 08:10 08:10 08:42 WBC 14.3 H RBC 3.47 L Hgb 11.1 L Hct 34.7 L MCV 100.1 H MCH 31.9 MCHC 31.8 L RDW 14.6 Plt Count 117 L MPV 10.6 Neut % (Auto) 84.8 H Lymph % (Auto) 5.1 L Gregory % (Auto) 9.7 H Eos % (Auto) 0.2 Baso % (Auto) 0.2 Neut # (Auto) 12.1 H Lymph # (Auto) 0.7 L Gregory # (Auto) 1.4 H Eos # (Auto) 0.0 Baso # (Auto) 0.0 WBC Differential . Differential Comment Auto diff final PT INR Sodium 138 Potassium 6.7 H* D Chloride 102 Carbon Dioxide 23.5 Anion Gap 13 BUN 89 H Creatinine 3.86 H Estimated GFR 15 L POC Glucose 120 H Random Glucose 92 Calcium 8.4 L Phosphorus 8.6 H Magnesium Total Bilirubin AST ALT Alkaline Phosphatase Total Creatine Kinase CK-MB (CK-2) Troponin I B-Natriuretic Peptide Total Protein Albumin 2.6 L Triglycerides Cholesterol LDL Cholesterol, Calc HDL Cholesterol Cholesterol/HDL Ratio Urine Color Urine Clarity Urine pH Ur Specific [place] Urine Protein Urine Glucose (UA) Urine Ketones Urine Occult Blood Urine Nitrate Urine Bilirubin Urine Urobilinogen Ur Leukocyte Esterase Urine RBC Urine WBC Ur Squamous Epith Cells Amorphous Sediment Urine Bacteria Hyaline Casts Urine Mucus Micro UA Comment Urine Culture Comments Urine Osmolality Ur Random Creatinine Nasal Screen MRSA (PCR) Hepatitis A IgM Ab Hep Bs Antigen Hep B Core IgM Ab Hep C IgG Ab Result Diagrams: 12/02/17 08:10 12/02/17 08:10 Patient/Family Conference Issues Discussed: * Palliative care role, purpose, approach * Additional medical, psychosocial, and spiritual history * Patients general health, functional status, and cognitive changes in the months leading up to the current hospitalization * Patient/family understanding of the current medical problems * Patient/family understanding of prognosis * Patients goals of care as best understood from advance directives and/or conversations and/or values * Current medical treatment options and benefits/burdens of those options * Likely scenarios comparing ongoing aggressive care with a transition to comfort measures only * Questions answered to the best of my ability * Palliative care contact information provided Assessment and Plan Pertinent Non-Medical Issues: Psychosocial: Spiritual: Legal: Ethical issues impacting care: Appreciation Thank you for the opportunity to participate in the care of Akin Moran.
[2017-12-02 11:25] LABS: Hemoglobin 11.8 gm/dL (13.0-17.0); Mean Corpuscular HGB Conc 32.8 % (32.0-36.0); Mean Corpuscular Hemoglobin 32.7 pg (27.0-34.0); Mean Corpuscular Volume 99.6 fL (80.0-100.0); Mean Platelet Volume 10.4 fL (7.0-11.0); Platelet Count 128 th/mm3 (150-450); Red Blood Count 3.61 mil/mm3 (4.50-5.90); Red Cell Distribution Width 14.4 % (11.6-17.2); White Blood Count 15.1 th/mm3 (4.0-11.0)
--- NOTE | 2017-12-02 11:28 | P.PNCA ---
<Meg Thao N - Last Filed: 12/02/17 11:19> Subjective Interval history: General: Patient denies fevers, chills, and recent travel. HEENT: Patient denies headache, sore throat, difficulty swallowing. Cardiovascular: Patient denies chest pain, dizziness. Denies sensation of heart beating rapidly or irregularly. No syncope. Respiratory: Denies shortness of breath or inspirational chest discomfort. Denies coughing wheezing or hemoptysis. GI: Patient denies nausea, vomiting, diarrhea, abdominal pain, bloody stools. Musculoskeletal: Patient denies joint pain or edema. Denies calf pain or edema. Neurovascular: Patient denies numbness, tingling, weakness in extremities. Denies headache. Endocrine: Denies polyuria and polydipsia. Hematologic: Denies easy bruising. Skin: Denies rash or itching. Physical Exam Vital signs: Vital Signs 12/01/17 12:00 12/01/17 16:00 12/01/17 19:55 Temperature 98.7 F 98.8 F 98.1 F Pulse Rate 62 63 65 Respiratory Rate 18 Blood Pressure 113/67 94/70 L 103/64 Pulse Oximetry 94 L 94 L 99 12/01/17 20:37 12/01/17 20:55 12/02/17 00:00 Temperature 97.9 F Pulse Rate 60 Respiratory Rate 41 H Blood Pressure 115/78 Pulse Oximetry 98 92 L 92 L 12/02/17 04:00 12/02/17 08:08 Temperature 97.7 F Pulse Rate 60 Respiratory Rate 29 H Blood Pressure 105/56 L Pulse Oximetry 97 100 Intake & Output 12/01/17 12/02/17 12/02/17 18:59 06:59 18:59 Intake Total 570 / 570 Output Total 0 / 0 Balance 570 / 570 Weight 80.11 kg 92.3 kg Intake: IV 450 / 450 Azithromycin Inj 500 MG In NS 250 / 250 Inj 250 ML @ 250 mls/hr IV.SIG Q24H [facility] Rx#:[id number] Maxipime Inj 2,000 MG In NS Inj 100 / 100 100 ML @ 200 mls/hr IV.SIG Q12H [facility]ON[facility] Rx#:[id number] Rocephin Inj 2,000 MG In NS Inj 100 / 100 100 ML @ 200 mls/hr IV.SIG Q24H [facility]ONICA Rx#:[id number] Oral 120 / 120 Output: Urine 0 / 0 Other: # Voids 2 Date of Last Bowel Movement 11/30/17 12/01/17 # Bowel Movements 0 Narrative: GENERAL: This is a well-nourished, well-developed patient, in no apparent distress. Patient speaks in clear complete sentences. Patient is pleasant. HEENT: Head is atraumatic and normocephalic. Neck is supple without lymphadenopathy and trachea is midline. No JVD or carotid bruits. CARDIOVASCULAR: Regular rate and rhythm without murmurs, gallops, or rubs. 2+ edema lower extremities. RESPIRATORY: Fine crackles noted lower lobes. Breath sounds equal bilaterally. No wheezes or rhonchi. Chest wall is nontender. No use of accessory muscles. GASTROINTESTINAL: Abdomen is nontender, nondistended. Abdomen soft. No obvious pulsatile mass or bruit. No CVA tenderness. Strong femoral pulses bilaterally. Normal bowel sounds in all quadrants. MUSCULOSKELETAL: Patient is moving upper and lower extremities freely. No calf tenderness, no Homans sign. Strong pulses in upper and lower extremities. NEUROLOGICAL: Patient is lethargic and mild confusion. No focal deficits and speech is clear. SKIN: No rash and turgor is normal. Assessment and Plan - Assessment (1) CHF (congestive heart failure) Code(s): I50.9 - Heart failure, unspecified Status: Acute (2) Pneumonia Code(s): J18.9 - Pneumonia, unspecified organism Status: Acute (3) Acute renal failure (ARF) Code(s): N17.9 - Acute kidney failure, unspecified Status: Acute (4) Elevated troponin Code(s): R74.8 - Abnormal levels of other serum enzymes Status: Acute - Plan BUN and creatinine continue to rise, no urine output for the last 12 hours, neurology evaluation in progress. 2D echo results show LV function is moderate to severely reduced with an ejection fraction 35-40%, moderate to severe mitral valve regurgitation mild aortic valve regurgitation moderate to severe tricuspid valve regurgitation. Palliative care was consulted. Will follow patient during hospitalization. Will adjust cardiac treatment plan as needed. The patient was seen and evaluated by Dr. Rehman who participated in care, management and decision-making. <Layne Rehman - Last Filed: 12/02/17 13:00> Physical Exam Vital signs: Vital Signs 12/01/17 16:00 12/01/17 19:55 12/01/17 20:37 Temperature 98.8 F 98.1 F Pulse Rate 63 65 Respiratory Rate 16 18 Blood Pressure 94/70 L 103/64 Pulse Oximetry 94 L 99 98 12/01/17 20:55 12/02/17 00:00 12/02/17 04:00 Temperature 97.9 F 97.7 F Pulse Rate 60 60 Respiratory Rate 41 H 29 H Blood Pressure 115/78 105/56 L Pulse Oximetry 92 L 92 L 97 12/02/17 08:08 Temperature Pulse Rate Respiratory Rate Blood Pressure Pulse Oximetry 100 Intake & Output 12/01/17 12/02/17 12/02/17 18:59 06:59 18:59 Intake Total 570 / 570 Output Total 0 / 0 Balance 570 / 570 Weight 176 lb 9.797 oz 203 lb 7.787 oz Intake: IV 450 / 450 Azithromycin Inj 500 MG In NS 250 / 250 Inj 250 ML @ 250 mls/hr IV.SIG Q24H [facility] Rx#:[id number] Maxipime Inj 2,000 MG In NS Inj 100 / 100 100 ML @ 200 mls/hr IV.SIG Q12H [facility] Rx#:[id number] Rocephin Inj 2,000 MG In NS Inj 100 / 100 100 ML @ 200 mls/hr IV.SIG Q24H [facility]ON[facility] Rx#:[id number] Oral 120 / 120 Output: Urine 0 / 0 Other: # Voids 2 Date of Last Bowel Movement 11/30/17 12/01/17 # Bowel Movements 0 Assessment and Plan - Assessment (1) CHF (congestive heart failure) Code(s): I50.9 - Heart failure, unspecified Status: Acute (2) Pneumonia Code(s): J18.9 - Pneumonia, unspecified organism Status: Acute (3) Acute renal failure (ARF) Code(s): N17.9 - Acute kidney failure, unspecified Status: Acute (4) Elevated troponin Code(s): R74.8 - Abnormal levels of other serum enzymes Status: Acute - Attending Attestation Patient seen and examined. I reviewed and agree with the evaluation and plan as presented. Renal function progressively worse. Echo with moderate LV systolic dysfunction. Will try gentle fluid challenge. Palliative care consulted based on his family's wishes. <Mge Thao - Last Filed: 12/02/17 11:19> (1) CHF (congestive heart failure) Qualifiers: Heart failure type: unspecified Heart failure chronicity: unspecified Qualified Code(s): I50.9 - Heart failure, unspecified (2) Pneumonia Qualifiers: Pneumonia type: due to unspecified organism Laterality: unspecified laterality Lung location: unspecified part of lung Qualified Code(s): J18.9 - Pneumonia, unspecified organism (3) Acute renal failure (ARF) Qualifiers: Acute renal failure type: unspecified Qualified Code(s): N17.9 - Acute kidney failure, unspecified <Layne Rehman - Last Filed: 12/02/17 13:00> (1) CHF (congestive heart failure) Qualifiers: Heart failure type: unspecified Heart failure chronicity: unspecified Qualified Code(s): I50.9 - Heart failure, unspecified (2) Pneumonia Qualifiers: Pneumonia type: due to unspecified organism Laterality: unspecified laterality Lung location: unspecified part of lung Qualified Code(s): J18.9 - Pneumonia, unspecified organism (3) Acute renal failure (ARF) Qualifiers: Acute renal failure type: unspecified Qualified Code(s): N17.9 - Acute kidney failure, unspecified
--- NOTE | 2017-12-02 11:29 | P.PNFP ---
Subjective Interval history: There is reported that the patient overnight became increasingly confused, was transferred to the ICU. Critical care was consulted. The family deferred imaging at that time. Son believes that his father is more confused at this time than baseline. Patient seen and examined this morning. States he currently does not have pain. Poorly able to respond to questions, confused. Unable to elicit further symptoms as patient states "I do not know, I do not have good short-term memory. " Nursing reports that he has not made urine in over 10 hours, a bladder scan had less than 20 mL. Spoke with son at length in the family room regarding his father's current status. Discussed current findings, labs, and goals of care. The son reinforced that the family does not want any significant procedures at this time , and the patient's , his medical proxy, was going to show up later. Palliative care's role was discussed and the patient as well as the potential for hospice. We noted that we would be willing to sit down a later time when more the family had gathered to further discuss the patient. <Cesar Romero - 12/02/17 11:28> Results - Labs Result diagrams: 12/02/17 11:07 12/02/17 11:07 <Yovani Rivera - 12/02/17 15:54> Abnormal lab results 12/01/17 12/01/17 12/01/17 Range/Units 18:30 18:54 20:37 WBC (4.0-11.0) th/mm3 RBC (4.50-5.90) mil/mm3 Hgb (13.0-17.0) gm/dL Hct (39.0-51.0) % MCV (80.0-100.0) fL MCHC (32.0-36.0) % Plt Count (150-450) th/mm3 Neut % (Auto) (16.0-70.0) % Lymph % (Auto) (9.0-44.0) % [place] % (Auto) (0.0-8.0) % Neut # (Auto) (1.8-7.7) th/mm3 Lymph # (Auto) (1.0-4.8) th/mm3 [place] # (Auto) (0.0-0.9) th/mm3 Potassium (3.5-5.1) meq/L BUN (7-18) mg/dL Creatinine (0.60-1.30) mg/dL Estimated GFR (>89) mL/min POC Glucose 180 H 171 H (68-110) mg/dl Calcium (8.5-10.1) mg/dL Phosphorus (2.5-4.9) mg/dL Total Bilirubin (0.2-1.0) mg/dL AST (15-37) U/L ALT (12-78) U/L Alkaline Phosphatase (45-117) U/L CK-MB (CK-2) (0.5-3.6) ng/mL Troponin I (0.02-0.05) ng/mL Total Protein (6.4-8.2) g/dL Albumin (3.4-5.0) g/dL Urine Clarity Cloudy H (Clear) Urine Protein 30 H (Neg-Trace) mg/dL Ur Leukocyte Esterase Trace H (Negative) Amorphous Sediment Few H (None) /hpf Urine Bacteria Occasional H (None) /hpf Urine Mucus Few H (Occasional) /lpf Complement C3 (90-180) mg/dL 12/01/17 12/02/17 12/02/17 Range/Units 21:41 08:10 08:10 WBC 14.3 H (4.0-11.0) th/mm3 RBC 3.47 L (4.50-5.90) mil/mm3 Hgb 11.1 L (13.0-17.0) gm/dL Hct 34.7 L (39.0-51.0) % MCV 100.1 H (80.0-100.0) fL MCHC 31.8 L (32.0-36.0) % Plt Count 117 L (150-450) th/mm3 Neut % (Auto) 84.8 H (16.0-70.0) % Lymph % (Auto) 5.1 L (9.0-44.0) % [place] % (Auto) 9.7 H (0.0-8.0) % Neut # (Auto) 12.1 H (1.8-7.7) th/mm3 Lymph # (Auto) 0.7 L (1.0-4.8) th/mm3 [place] # (Auto) 1.4 H (0.0-0.9) th/mm3 Potassium 6.7 H* D (3.5-5.1) meq/L BUN 89 H (7-18) mg/dL Creatinine 3.86 H (0.60-1.30) mg/dL Estimated GFR 15 L (>89) mL/min POC Glucose (68-110) mg/dl Calcium 8.4 L (8.5-10.1) mg/dL Phosphorus 8.6 H (2.5-4.9) mg/dL Total Bilirubin (0.2-1.0) mg/dL AST (15-37) U/L ALT (12-78) U/L Alkaline Phosphatase (45-117) U/L CK-MB (CK-2) 5.2 H (0.5-3.6) ng/mL Troponin I 1.07 H* (0.02-0.05) ng/mL Total Protein (6.4-8.2) g/dL Albumin 2.6 L (3.4-5.0) g/dL Urine Clarity (Clear) Urine Protein (Neg-Trace) mg/dL Ur Leukocyte Esterase (Negative) Amorphous Sediment (None) /hpf Urine Bacteria (None) /hpf Urine Mucus (Occasional) /lpf Complement C3 59 L (90-180) mg/dL 12/02/17 12/02/17 12/02/17 Range/Units 08:42 11:07 11:07 WBC 15.1 H (4.0-11.0) th/mm3 RBC 3.61 L (4.50-5.90) mil/mm3 Hgb 11.8 L (13.0-17.0) gm/dL Hct 36.0 L (39.0-51.0) % MCV (80.0-100.0) fL MCHC (32.0-36.0) % Plt Count 128 L (150-450) th/mm3 Neut % (Auto) (16.0-70.0) % Lymph % (Auto) (9.0-44.0) % [place] % (Auto) (0.0-8.0) % Neut # (Auto) (1.8-7.7) th/mm3 Lymph # (Auto) (1.0-4.8) th/mm3 [place] # (Auto) (0.0-0.9) th/mm3 Potassium 6.3 H (3.5-5.1) meq/L BUN 92 H (7-18) mg/dL Creatinine 4.17 H (0.60-1.30) mg/dL Estimated GFR 14 L (>89) mL/min POC Glucose 120 H (68-110) mg/dl Calcium (8.5-10.1) mg/dL Phosphorus (2.5-4.9) mg/dL Total Bilirubin 1.7 H (0.2-1.0) mg/dL AST 6530 H (15-37) U/L ALT 3760 H (12-78) U/L Alkaline Phosphatase 446 H (45-117) U/L CK-MB (CK-2) (0.5-3.6) ng/mL Troponin I (0.02-0.05) ng/mL Total Protein 6.3 L (6.4-8.2) g/dL Albumin 2.8 L (3.4-5.0) g/dL Urine Clarity (Clear) Urine Protein (Neg-Trace) mg/dL Ur Leukocyte Esterase (Negative) Amorphous Sediment (None) /hpf Urine Bacteria (None) /hpf Urine Mucus (Occasional) /lpf Complement C3 (90-180) mg/dL 12/02/17 12/02/17 Range/Units 11:07 15:19 WBC (4.0-11.0) th/mm3 RBC (4.50-5.90) mil/mm3 Hgb (13.0-17.0) gm/dL Hct (39.0-51.0) % MCV (80.0-100.0) fL MCHC (32.0-36.0) % Plt Count (150-450) th/mm3 Neut % (Auto) (16.0-70.0) % Lymph % (Auto) (9.0-44.0) % [place] % (Auto) (0.0-8.0) % Neut # (Auto) (1.8-7.7) th/mm3 Lymph # (Auto) (1.0-4.8) th/mm3 [place] # (Auto) (0.0-0.9) th/mm3 Potassium (3.5-5.1) meq/L BUN (7-18) mg/dL Creatinine (0.60-1.30) mg/dL Estimated GFR (>89) mL/min POC Glucose 134 H (68-110) mg/dl Calcium (8.5-10.1) mg/dL Phosphorus (2.5-4.9) mg/dL Total Bilirubin (0.2-1.0) mg/dL AST (15-37) U/L ALT (12-78) U/L Alkaline Phosphatase (45-117) U/L CK-MB (CK-2) (0.5-3.6) ng/mL Troponin I 8.21 H* (0.02-0.05) ng/mL Total Protein (6.4-8.2) g/dL Albumin (3.4-5.0) g/dL Urine Clarity (Clear) Urine Protein (Neg-Trace) mg/dL Ur Leukocyte Esterase (Negative) Amorphous Sediment (None) /hpf Urine Bacteria (None) /hpf Urine Mucus (Occasional) /lpf Complement C3 (90-180) mg/dL Short CBC 12/02/17 12/02/17 Range/Units 08:10 11:07 WBC 14.3 H 15.1 H (4.0-11.0) th/mm3 Hgb 11.1 L 11.8 L (13.0-17.0) gm/dL Hct 34.7 L 36.0 L (39.0-51.0) % Plt Count 117 L 128 L (150-450) th/mm3 BMP 12/02/17 12/02/17 08:10 11:07 Sodium 138 138 Potassium 6.7 H* D 6.3 H Chloride 102 102 Carbon Dioxide 23.5 23.1 BUN 89 H 92 H Creatinine 3.86 H 4.17 H Calcium 8.4 L 8.6 Cardiac Enzymes 12/01/17 12/02/17 Range/Units 21:41 11:07 Total Creatine Kinase 225 (39-308) U/L CK-MB (CK-2) 5.2 H (0.5-3.6) ng/mL Troponin I 1.07 H* 8.21 H* (0.02-0.05) ng/mL Liver Function 12/02/17 12/02/17 Range/Units 08:10 11:07 Total Bilirubin 1.7 H (0.2-1.0) mg/dL AST 6530 H (15-37) U/L ALT 3760 H (12-78) U/L Alkaline Phosphatase 446 H (45-117) U/L Albumin 2.6 L 2.8 L (3.4-5.0) g/dL Urine 12/01/17 Range/Units 18:30 Urine Color Yellow (Yellw/Straw) Urine Clarity Cloudy H (Clear) Urine pH 5.0 (5.0-8.5) Ur Specific [place] 1.013 (1.002-1.035) Urine Protein 30 H (Neg-Trace) mg/dL Urine Glucose (UA) Negative (Negative) mg/dL <Yovani Rivera - 12/02/17 15:54> Abnormal lab results 12/01/17 12/01/17 12/01/17 Range/Units 11:23 13:28 18:30 WBC (4.0-11.0) th/mm3 RBC (4.50-5.90) mil/mm3 Hgb (13.0-17.0) gm/dL Hct (39.0-51.0) % MCV (80.0-100.0) fL MCHC (32.0-36.0) % Plt Count (150-450) th/mm3 Neut % (Auto) (16.0-70.0) % Lymph % (Auto) (9.0-44.0) % [place] % (Auto) (0.0-8.0) % Neut # (Auto) (1.8-7.7) th/mm3 Lymph # (Auto) (1.0-4.8) th/mm3 [place] # (Auto) (0.0-0.9) th/mm3 Potassium (3.5-5.1) meq/L BUN (7-18) mg/dL Creatinine (0.60-1.30) mg/dL Estimated GFR (>89) mL/min POC Glucose 111 H (68-110) mg/dl Calcium (8.5-10.1) mg/dL Phosphorus (2.5-4.9) mg/dL CK-MB (CK-2) (0.5-3.6) ng/mL Troponin I 1.49 H* (0.02-0.05) ng/mL Albumin (3.4-5.0) g/dL Urine Clarity Cloudy H (Clear) Urine Protein 30 H (Neg-Trace) mg/dL Ur Leukocyte Esterase Trace H (Negative) Amorphous Sediment Few H (None) /hpf Urine Bacteria Occasional H (None) /hpf Urine Mucus Few H (Occasional) /lpf 12/01/17 12/01/17 12/01/17 Range/Units 18:54 20:37 21:41 WBC (4.0-11.0) th/mm3 RBC (4.50-5.90) mil/mm3 Hgb (13.0-17.0) gm/dL Hct (39.0-51.0) % MCV (80.0-100.0) fL MCHC (32.0-36.0) % Plt Count (150-450) th/mm3 Neut % (Auto) (16.0-70.0) % Lymph % (Auto) (9.0-44.0) % [place] % (Auto) (0.0-8.0) % Neut # (Auto) (1.8-7.7) th/mm3 Lymph # (Auto) (1.0-4.8) th/mm3 [place] # (Auto) (0.0-0.9) th/mm3 Potassium (3.5-5.1) meq/L BUN (7-18) mg/dL Creatinine (0.60-1.30) mg/dL Estimated GFR (>89) mL/min POC Glucose 180 H 171 H (68-110) mg/dl Calcium (8.5-10.1) mg/dL Phosphorus (2.5-4.9) mg/dL CK-MB (CK-2) 5.2 H (0.5-3.6) ng/mL Troponin I 1.07 H* (0.02-0.05) ng/mL Albumin (3.4-5.0) g/dL Urine Clarity (Clear) Urine Protein (Neg-Trace) mg/dL Ur Leukocyte Esterase (Negative) Amorphous Sediment (None) /hpf Urine Bacteria (None) /hpf Urine Mucus (Occasional) /lpf 12/02/17 12/02/17 12/02/17 Range/Units 08:10 08:10 08:42 WBC 14.3 H (4.0-11.0) th/mm3 RBC 3.47 L (4.50-5.90) mil/mm3 Hgb 11.1 L (13.0-17.0) gm/dL Hct 34.7 L (39.0-51.0) % MCV 100.1 H (80.0-100.0) fL MCHC 31.8 L (32.0-36.0) % Plt Count 117 L (150-450) th/mm3 Neut % (Auto) 84.8 H (16.0-70.0) % Lymph % (Auto) 5.1 L (9.0-44.0) % [place] % (Auto) 9.7 H (0.0-8.0) % Neut # (Auto) 12.1 H (1.8-7.7) th/mm3 Lymph # (Auto) 0.7 L (1.0-4.8) th/mm3 [place] # (Auto) 1.4 H (0.0-0.9) th/mm3 Potassium 6.7 H* D (3.5-5.1) meq/L BUN 89 H (7-18) mg/dL Creatinine 3.86 H (0.60-1.30) mg/dL Estimated GFR 15 L (>89) mL/min POC Glucose 120 H (68-110) mg/dl Calcium 8.4 L (8.5-10.1) mg/dL Phosphorus 8.6 H (2.5-4.9) mg/dL CK-MB (CK-2) (0.5-3.6) ng/mL Troponin I (0.02-0.05) ng/mL Albumin 2.6 L (3.4-5.0) g/dL Urine Clarity (Clear) Urine Protein (Neg-Trace) mg/dL Ur Leukocyte Esterase (Negative) Amorphous Sediment (None) /hpf Urine Bacteria (None) /hpf Urine Mucus (Occasional) /lpf Short CBC 12/02/17 Range/Units 08:10 WBC 14.3 H (4.0-11.0) th/mm3 Hgb 11.1 L (13.0-17.0) gm/dL Hct 34.7 L (39.0-51.0) % Plt Count 117 L (150-450) th/mm3 BMP 12/02/17 08:10 Sodium 138 Potassium 6.7 H* D Chloride 102 Carbon Dioxide 23.5 BUN 89 H Creatinine 3.86 H Calcium 8.4 L Cardiac Enzymes 08/02/18 08/02/18 Range/Units 11:23 21:41 Total Creatine Kinase 225 (39-308) U/L CK-MB (CK-2) 5.2 H (0.5-3.6) ng/mL Troponin I 1.49 H* 1.07 H* (0.02-0.05) ng/mL Liver Function 12/02/17 Range/Units 08:10 Albumin 2.6 L (3.4-5.0) g/dL Urine 12/01/17 Range/Units 18:30 Urine Color Yellow (Yellw/Straw) Urine Clarity Cloudy H (Clear) Urine pH 5.0 (5.0-8.5) Ur Specific [place] 1.013 (1.002-1.035) Urine Protein 30 H (Neg-Trace) mg/dL Urine Glucose (UA) Negative (Negative) mg/dL <Cesar Romero - 12/02/17 11:28> - Imaging Impressions Chest X-Ray 12/01/17 21:13 CONCLUSION: Slight worsening of right lung consolidation over the last day. Pacer leads overlie right atrium and right ventricle. Small effusions. <Yovani Rivera - 12/02/17 15:54> Impressions Abdomen/Bladder Ultrasound 12/01/17 00:00 CONCLUSION: 1. Mild thinning of the renal cortex and slight increase in echogenicity this can be seen with underlying medical renal disease. 2. Small simple cyst identified in the left kidney. Chest X-Ray 12/01/17 21:13 CONCLUSION: Slight worsening of right lung consolidation over the last day. Pacer leads overlie right atrium and right ventricle. Small effusions. <Cesar Romero - 12/02/17 11:28> Physical Exam Vital signs: Vital Signs 12/01/17 16:00 12/01/17 19:55 12/01/17 20:37 Temperature 98.8 F 98.1 F Pulse Rate 63 65 Respiratory Rate 16 18 Blood Pressure 94/70 L 103/64 Pulse Oximetry 94 L 99 98 12/01/17 20:55 12/02/17 00:00 12/02/17 04:00 Temperature 97.9 F 97.7 F Pulse Rate 60 60 Respiratory Rate 41 H 29 H Blood Pressure 115/78 105/56 L Pulse Oximetry 92 L 92 L 97 08/03/18 08:08 12/02/17 15:16 Temperature Pulse Rate 60 Respiratory Rate 16 Blood Pressure Pulse Oximetry 100 Intake & Output 12/01/17 12/02/17 12/02/17 18:59 06:59 18:59 Intake Total 570 / 570 Output Total 0 / 0 Balance 570 / 570 Weight 80.11 kg 92.3 kg Intake: IV 450 / 450 Azithromycin Inj 500 MG In NS 250 / 250 Inj 250 ML @ 250 mls/hr IV.SIG Q24H VERONICA Rx#:[id number] Maxipime Inj 2,000 MG In NS Inj 100 / 100 100 ML @ 200 mls/hr IV.SIG Q12H VERONICA Rx#:[id number] Rocephin Inj 2,000 MG In NS Inj 100 / 100 100 ML @ 200 mls/hr IV.SIG Q24H VERONICA Rx#:[id number] Oral 120 / 120 Output: Urine 0 / 0 Other: # Voids 2 Date of Last Bowel Movement 11/30/17 12/01/17 # Bowel Movements 0 <Yovani Rivera - 12/02/17 15:54> Vital Signs 12/01/17 12:00 12/01/17 16:00 12/01/17 19:55 Temperature 98.7 F 98.8 F 98.1 F Pulse Rate 62 63 65 Respiratory Rate 18 16 18 Blood Pressure 113/67 94/70 L 103/64 Pulse Oximetry 94 L 94 L 99 12/01/17 20:37 12/01/17 20:55 12/02/17 00:00 Temperature 97.9 F Pulse Rate 60 Respiratory Rate 41 H Blood Pressure 115/78 Pulse Oximetry 98 92 L 92 L 12/02/17 04:00 12/02/17 08:08 Temperature 97.7 F Pulse Rate 60 Respiratory Rate 29 H Blood Pressure 105/56 L Pulse Oximetry 97 100 Intake & Output 12/01/17 12/02/17 12/02/17 18:59 06:59 18:59 Intake Total 570 / 570 Output Total 0 / 0 Balance 570 / 570 Weight 80.11 kg 92.3 kg Intake: IV 450 / 450 Azithromycin Inj 500 MG In NS 250 / 250 Inj 250 ML @ 250 mls/hr IV.SIG Q24H VERONICA Rx#:[id number] Maxipime Inj 2,000 MG In NS Inj 100 / 100 100 ML @ 200 mls/hr IV.SIG Q12H VERONICA Rx#:[id number] Rocephin Inj 2,000 MG In NS Inj 100 / 100 100 ML @ 200 mls/hr IV.SIG Q24H VERONICA Rx#:[id number] Oral 120 / 120 Output: Urine 0 / 0 Other: # Voids 2 Date of Last Bowel Movement 11/30/17 12/01/17 # Bowel Movements 0 <Cesar Romero - 12/02/17 11:28> Narrative: GENERAL: Elderly appearing, thin male lying in bed comfortable HEAD: Normocephalic. EYES: No scleral icterus. NECK: No JVD or lymphadenopathy. CARDIOVASCULAR: Regular rate without murmurs, gallops, or rubs. RESPIRATORY: Decreased breath sounds diffusely with no diffuse right-sided crackles GASTROINTESTINAL: Abdomen soft, non-tender, nondistended. MUSCULOSKELETAL: No cyanosis. 1+ pitting edema bilaterally lower extremities extending to mid wang Neurological: Patient oriented only to self <Cesar Romero - 12/02/17 11:28> Assessment and Plan - Assessment (1) CHF (congestive heart failure) Code(s): I50.9 - Heart failure, unspecified Status: Acute (2) Elevated troponin Code(s): R74.8 - Abnormal levels of other serum enzymes Status: Acute (3) Acute renal failure (ARF) Code(s): N17.9 - Acute kidney failure, unspecified Status: Acute (4) Pneumonia Code(s): J18.9 - Pneumonia, unspecified organism Status: Acute (5) Elevated liver enzymes Code(s): R74.8 - Abnormal levels of other serum enzymes Status: Acute (6) Abnormal chest CT Code(s): R93.8 - Abnormal findings on diagnostic imaging of other specified body structures Status: Acute (7) Dementia Code(s): F03.90 - Unspecified dementia without behavioral disturbance Status: Acute (8) Diabetes Code(s): E11.9 - Type 2 diabetes mellitus without complications Status: Acute (9) Afib Code(s): I48.91 - Unspecified atrial fibrillation Status: Acute (10) Hyperlipidemia Code(s): E78.5 - Hyperlipidemia, unspecified Status: Acute (11) Nutrition, metabolism, and development symptoms Code(s): R63.8 - Other symptoms and signs concerning food and fluid intake Status: Acute <Yovani Rivera - 12/02/17 15:54> (1) CHF (congestive heart failure) Code(s): I50.9 - Heart failure, unspecified Status: Acute Plan: Acute exacerbation of chronic congestive heart failure Patient obviously fluid overloaded on exam and BNP on admission of 1433 Cardiac troponins elevated on arrival 1.21, 1.38, 1.56, 1.49, 1.07 -Unable to perform cardiac catheterization per cardiology due to acute renal insufficiency -Nitropaste has been placed -Continue Eliquis -Aspirin 81 mg daily -Metoprolol 12.5 mg p.o. twice daily Continue diuresis with Lasix IV 40 mg daily -Strict I's and O's -Daily weights -Daily fluid restrictions of 1.5 L -Occasional crackles on lung exam at bilateral bases -Lasix 40 mg daily -2D echocardiogram to evaluate ejection fraction Cardiology consulted and following, appreciate recommendations (2) Elevated troponin Code(s): R74.8 - Abnormal levels of other serum enzymes Status: Acute Plan: Cardiac troponins elevated on arrival, trending upwards to 1.56, most recent troponin 1.07 -Cardiology following, see plan for CHF (3) Acute renal failure (ARF) Code(s): N17.9 - Acute kidney failure, unspecified Status: Acute Plan: Nephrology consulted, appreciate recommendations Renal ultrasound showing simple cyst and ". Mild thinning of the renal cortex and slight increase in echogenicity this can be seen with underlying medical renal disease." -Avoid nephrotoxic agents as much as possible -Anuric with increasing creatinine 2.49 => 3.86, very poor prognostic factor. Discussed with son. (4) Pneumonia Code(s): J18.9 - Pneumonia, unspecified organism Status: Acute Plan: Chest CT shows coarse parenchymal infiltrates bilaterally most pronounced in the right upper lobe with air bronchogram formation seen. There is associated prominent mediastinal lymph nodes. He will be treated for pneumonia. Will consider treatment plan following discussion with palliative. Antibiotic treatment: Levaquin 750 mg p.o. daily Cefepime Supplemental oxygen as needed Monitor on telemetry Blood cultures ordered and pending (5) Elevated liver enzymes Code(s): R74.8 - Abnormal levels of other serum enzymes Status: Acute Plan: Possibly due to poor cardiac output -Hepatitis panel negative -No known history of liver disease -Follow-up CMP (6) Abnormal chest CT Code(s): R93.8 - Abnormal findings on diagnostic imaging of other specified body structures Status: Acute Plan: Bilateral parenchymal infiltrates and effusions with mediastinal adenopathy -Inflammatory versus infectious etiology to infiltrates See treatment as above for pneumonia (7) Dementia Code(s): F03.90 - Unspecified dementia without behavioral disturbance Status: Acute Plan: Continue home meds (8) Diabetes Code(s): E11.9 - Type 2 diabetes mellitus without complications Status: Acute Plan: -Diabetic diet -Patient on low-dose sliding scale insulin (9) Afib Code(s): I48.91 - Unspecified atrial fibrillation Status: Acute Plan: Continue Eliquis and rate control with metoprolol Continuous telemetry (10) Hyperlipidemia Code(s): E78.5 - Hyperlipidemia, unspecified Status: Acute Plan: Continue statin (11) Nutrition, metabolism, and development symptoms Code(s): R63.8 - Other symptoms and signs concerning food and fluid intake Status: Acute Plan: Diet: Diabetic diet Fluids: None at this time DVT prophylaxis: On Eliquis <Cesar Romero - 12/02/17 11:10> - Attending Attestation Patient examined and case discussed with resident physicians I have read the above note and agree with the assessment/plan as discussed with me I was involved with all medical decision making for this patient Long discussion with family with Dr. Prajapati present Lab work returned showing worsening renal function with a creatinine of 3.86 and hyperkalemia of 6.7 Dr. Prajapati and I discussed with the family the likelihood of progressive decompensation without dialysis given worsening renal function and hyperkalemia. Family continues to not want aggressive measures taken including dialysis. Dr. Prajapati placed orders for medications to help treat the hyperkalemia and I placed a consult for hospice as well as pastoral care to talk with the family. Hospice will evaluate patient today for possible transition of care to comfort. Yovani Rivera MD <Yovani Rivera - 12/02/17 15:54> <Yovani Rivera - Last Filed: 12/02/17 15:54> (1) CHF (congestive heart failure) Qualifiers: Heart failure type: unspecified Heart failure chronicity: unspecified Qualified Code(s): I50.9 - Heart failure, unspecified (3) Acute renal failure (ARF) Qualifiers: Acute renal failure type: unspecified Qualified Code(s): N17.9 - Acute kidney failure, unspecified (4) Pneumonia Qualifiers: Pneumonia type: due to unspecified organism Laterality: unspecified laterality Lung location: unspecified part of lung Qualified Code(s): J18.9 - Pneumonia, unspecified organism (8) Diabetes Qualifiers: Chronic kidney disease stage: stage 3 (moderate) <Yovani Rivera - Last Filed: 12/02/17 15:54> (1) CHF (congestive heart failure) Qualifiers: Heart failure type: unspecified Heart failure chronicity: unspecified Qualified Code(s): I50.9 - Heart failure, unspecified (3) Acute renal failure (ARF) Qualifiers: Acute renal failure type: unspecified Qualified Code(s): N17.9 - Acute kidney failure, unspecified (4) Pneumonia Qualifiers: Pneumonia type: due to unspecified organism Laterality: unspecified laterality Lung location: unspecified part of lung Qualified Code(s): J18.9 - Pneumonia, unspecified organism (8) Diabetes Qualifiers: Chronic kidney disease stage: stage 3 (moderate)
--- NOTE | 2017-12-02 11:29 | P.PNNP ---
Subjective Interval history: Patient remain clinically same, with low BP, on pressors. Physical Exam Vital signs: Vital Signs 12/01/17 12:00 12/01/17 16:00 12/01/17 19:55 Temperature 98.7 F 98.8 F 98.1 F Pulse Rate 62 63 65 Respiratory Rate 18 16 18 Blood Pressure 113/67 94/70 L 103/64 Pulse Oximetry 94 L 94 L 99 12/01/17 20:37 12/01/17 20:55 12/02/17 00:00 Temperature 97.9 F Pulse Rate 60 Respiratory Rate 41 H Blood Pressure 115/78 Pulse Oximetry 98 92 L 92 L 12/02/17 04:00 12/02/17 08:08 Temperature 97.7 F Pulse Rate 60 Respiratory Rate 29 H Blood Pressure 105/56 L Pulse Oximetry 97 100 Intake & Output 12/01/17 12/02/17 12/02/17 18:59 06:59 18:59 Intake Total 570 / 570 Output Total 0 / 0 Balance 570 / 570 Weight 80.11 kg 92.3 kg Intake: IV 450 / 450 Azithromycin Inj 500 MG In NS 250 / 250 Inj 250 ML @ 250 mls/hr IV.SIG Q24H VERONICA Rx#:[id number] Maxipime Inj 2,000 MG In NS Inj 100 / 100 100 ML @ 200 mls/hr IV.SIG Q12H VERONICA Rx#:[id number] Rocephin Inj 2,000 MG In NS Inj 100 / 100 100 ML @ 200 mls/hr IV.SIG Q24H VERONICA Rx#:[id number] Oral 120 / 120 Output: Urine 0 / 0 Other: # Voids 2 Date of Last Bowel Movement 11/30/17 12/01/17 # Bowel Movements 0 Narrative: GENERAL: Elderly appearing, thin male lying in bed comfortable HEAD: Normocephalic. EYES: No scleral icterus. NECK: No JVD or lymphadenopathy. CARDIOVASCULAR: Regular rate without murmurs, gallops, or rubs. RESPIRATORY: Decreased breath sounds diffusely with no diffuse right-sided crackles GASTROINTESTINAL: Abdomen soft, non-tender, nondistended. MUSCULOSKELETAL: No cyanosis. 1+ pitting edema bilaterally lower extremities extending to mid wang Neurological: Patient oriented only to self Assessment and Plan - Assessment (1) Acute renal failure (ARF) Code(s): N17.9 - Acute kidney failure, unspecified Status: Acute Qualifiers: Acute renal failure type: unspecified Qualified Code(s): N17.9 - Acute kidney failure, unspecified Plan: Acute kidney injury with a creatinine on admission was 2.32 and now has increased to 2.49. Patient may have some underlying chronic kidney disease but baseline creatinine is not available. Acute kidney injury possibly prerenal/ATN from poor intake and infection. Will order renal ultrasound Urine for sodium, urea, and osmolarity. Urinalysis Continue lasix may need to hold if creatinine continues to rise Maintain strict I+O Avoid nephrotoxins including aminoglycosides, NSAIDS, and IV contrast Heart cath is on hold with elevated BUN and creatinine, patient at risk for contrast nephropathy Monitor urinary output and BMP Urine out put is low. D/W the family, they want to go for Palliative care and possible Hospice. (2) CHF (congestive heart failure) Code(s): I50.9 - Heart failure, unspecified Status: Acute Qualifiers: Heart failure type: unspecified Heart failure chronicity: unspecified Qualified Code(s): I50.9 - Heart failure, unspecified Plan: Has received Lasix X 2 (3) Pneumonia Code(s): J18.9 - Pneumonia, unspecified organism Status: Acute Qualifiers: Pneumonia type: due to unspecified organism Laterality: unspecified laterality Lung location: unspecified part of lung Qualified Code(s): J18.9 - Pneumonia, unspecified organism Plan: Started on antibiotics (4) Diabetes Code(s): E11.9 - Type 2 diabetes mellitus without complications Status: Acute Qualifiers: Chronic kidney disease stage: stage 3 (moderate) Plan: Maintain blood sugar between 140 mg/dl to 180 mg/dl
[2017-12-02 11:44] LABS: Albumin 2.8 g/dL (3.4-5.0); Anion Gap 13 meq/L (5-15); Blood Urea Nitrogen 92 mg/dL (7-18); Calcium 8.6 mg/dL (8.5-10.1); Carbon Dioxide 23.1 meq/L (21.0-32.0); Chloride 102 meq/L (98-107); Glomerular Filtration Rate 14 mL/min (>89); Glucose,Random 96 mg/dL (74-106); Potassium 6.3 meq/L (3.5-5.1); Sodium 138 meq/L (136-145)
[2017-12-02] MEDS ORDERED: Dextrose 50% in Water 50 ML Vial IV.PUSH ONE ×2 (12:00→12:28)
[2017-12-02] MEDS ORDERED: Calcium Chloride Inj 1 GM in Sodium Chlor 0.9% Inj 100 ML IV.SIG ONE (12:00)
[2017-12-02 12:07] LABS: Alanine Aminotransferase 3760 U/L (12-78); Alkaline Phosphatase 446 U/L (45-117); Aspartate Aminotransferase 6530 U/L (15-37); Total Protein 6.3 g/dL (6.4-8.2)
[2017-12-02] MEDS ORDERED: Sodium Bicarbonate 8.4% Inj 50 MEQ/50 ML Syringe IV.PUSH ONE (12:26)
[2017-12-02] MEDS ORDERED: Sodium Polystyrene Sulfonate/Sorbitol Liq 15 GM/60 ML UDC PO ONE (12:29)
[2017-12-03 11:24] LABS: Urea Creatinine ratio 7.99 mg/mg
[2017-12-03] MEDS ORDERED: Pharmacy Ordered Lab Info OTHER SCH (17:00)
[2017-12-06 18:15] VITALS: RESP 26
[2017-12-06 18:27] VITALS: BP 121/59; TEMP 97.5; O2SAT 96
--- NOTE | 2017-12-21 18:06 | P.DS ---
<Kasey Baxter E - Last Filed: 12/21/17 17:54> Date of admission: 11/30/17 14:51 Primary care physician: Mciah Hyatt MD Brief History from admission: Patient's and daughter at bedside and contribute to history. Mr. Moran is an 87-year-old male with a history of dementia who presents with swelling of legs and dyspnea. He reports that for the past 2 weeks he has had increasing difficulty of breathing with exertion. He is now unable to walk across a room without feeling short of breath. He has had a cough for the past 5 days nonproductive. Past 5 days he has also noticed some increased swelling of his legs bilaterally. He denies orthopnea. He reports neck pain but denies jorge luis chest, jaw or arm pain. Daughter and do not report any change in mentation. He denies fevers, chills, abdominal pain, diarrhea, nausea, vomiting. PMH: DM HLD Afib Sx: Pacemaker- 2005 Stent 2005, 1997 Meds: ASA Januvia Eliquis Atorvastatin Donepezil Duloxetine Memantine Lyrica FMH: Father- dementia Mom- DM Social: Chews cigars, former smoker quit 10 years ago Social No recreational drugs DS: Diagnosis - Discharge Diagnosis (1) CHF (congestive heart failure) Status: Acute (2) Elevated troponin Status: Acute (3) Acute renal failure (ARF) Status: Acute (4) Elevated liver enzymes Status: Acute (5) Abnormal chest CT Status: Acute (6) Dementia Status: Acute (7) Diabetes Status: Acute (8) Afib Status: Acute (9) Hyperlipidemia Status: Acute (10) Nutrition, metabolism, and development symptoms Status: Acute DS: Summary Hospital Course: Mr Moran was admitted on 11/30 for leg swelling and dyspnea. He was found to have elevated troponin, LFT's and Cr as well. Bilateral parenchymal infiltrates seen on CXR with questionable consolidation vs mass in R upper lung field seen on CT. Cardiology and nephrology were consulted. The patient was placed on lasix , ASA, eliquis, nitro paste, and metoprolol. For his presumed PNA he was put on levaquin. On 12/01 his kidney and liver values worsened. Overnight he had a Halicat called as he was reported to have decreased alertness and desaturation to 70%. The son believed that there was an acute decline in mental status at that time. The family did not want to pursue head Ct, etc for AMS work-up. The intensivists were consulted and the patient was transferred to the ICU. Palliative care was consulted. On 12/02 the patient was discharged to hospice in serious condition. - Time Spent with Patient Total time spent providing and/or coordinating discharge services: Less than 30 minutes - Quality: VTE Deep Vein Thrombosis/Pulmonary Embolism Present on Admission: No Results Procedures completed during hospitalization: None - Impressions ITS Impressions Chest CT 11/30/17 12:53 CONCLUSION: 1. Bilateral parenchymal infiltrates and effusions, right greater than left. 2. Mediastinal adenopathy. Abdomen/Bladder Ultrasound 12/01/17 00:00 CONCLUSION: 1. Mild thinning of the renal cortex and slight increase in echogenicity this can be seen with underlying medical renal disease. 2. Small simple cyst identified in the left kidney. Chest X-Ray 12/01/17 21:13 CONCLUSION: Slight worsening of right lung consolidation over the last day. Pacer leads overlie right atrium and right ventricle. Small effusions. <Yovani Rivera - Last Filed: 12/22/17 07:52> Date of admission: 11/30/17 14:51 Primary care physician: Micah Hyatt MD DS: Diagnosis - Discharge Diagnosis (1) CHF (congestive heart failure) Status: Acute (2) Elevated troponin Status: Acute (3) Acute renal failure (ARF) Status: Acute (4) Pneumonia Status: Acute (5) Elevated liver enzymes Status: Acute (6) Abnormal chest CT Status: Acute (7) Dementia Status: Acute (8) Diabetes Status: Acute (9) Afib Status: Acute (10) Hyperlipidemia Status: Acute (11) Nutrition, metabolism, and development symptoms Status: Acute DS: Summary - Time Spent with Patient Total time spent providing and/or coordinating discharge services: Results - Impressions ITS Impressions Chest CT 11/30/17 12:53 CONCLUSION: 1. Bilateral parenchymal infiltrates and effusions, right greater than left. 2. Mediastinal adenopathy. Abdomen/Bladder Ultrasound 12/01/17 00:00 CONCLUSION: 1. Mild thinning of the renal cortex and slight increase in echogenicity this can be seen with underlying medical renal disease. 2. Small simple cyst identified in the left kidney. Chest X-Ray 12/01/17 21:13 CONCLUSION: Slight worsening of right lung consolidation over the last day. Pacer leads overlie right atrium and right ventricle. Small effusions. Discharge Plan - Discharge Order Discharge Orders: Discharge Order (Routine); Ordered 12/02/17 Ordered By: Kasey Baxter - Physicians Team Primary Care Provider: Micah Hyatt Attending Provider: Yovani Rivera Other Providers: Layne Rehman MD ; Josefina Prajapati MD ; Jurgen Schafer MD ; Carissa Naranjo MD
== END 2017-12-02 18:00 | disposition hospice, inpatient (51) ==
LOC: NEPC 10:44 → NEDA 14:51 → NEPGCP 18:46 → HIMC 12-01 21:50
PROVIDERS: ADMIT Family Medicine; ATTEND Family Medicine